=== PATIENT | female | born 1985 | race Caucasian/White ===

== ENCOUNTER 2020-01-21 08:30 | Outpatient (CLI) | payer BC, SELFPAY ==
[2020-01-21 17:19] LABS: Basophils Percent Auto 0.5 % (0.2-1.2); Eosinophils Absolute Auto 0.1 K/mm3 (0-0.3); Hemoglobin 13.8 g/dL (12.0-15.0); Immature Granulocyte Absolute 0.02 K/mm3 (0.00-0.031); Immature Granulocyte Percent A 0.2 % (0-0.5); Lymphocytes Absolute Auto 3.05 K/mm3 (0.9-3.2); Lymphocytes Percent Auto 36.4 % (18.3-44.2); Mean Corpuscular HGB Conc 32.9 g/dl (32-36); Mean Corpuscular Hemoglobin 29.6 pg (26-34); Mean Corpuscular Volume 90.1 fl (80-100); Mean Platelet Volume 9.9 fl (7.4-10.4); Monocytes Absolute Auto 0.7 K/mm3 (0.1-0.6); Monocytes Percent Auto 7.8 % (2.6-8.5); Neutrophils Absolute Auto 4.5 K/mm3 (1.3-6.7); Neutrophils Percent Auto 54.1 % (45.5-73.1); Platelet Count Result 344 k/mm3 (150-375); Red Blood Count 4.66 M/mm3 (4.2-5.4); Red Cell Distribution Width 13.1 % (11.5-14.5); White Blood Count 8.4 K/mm3 (4.5-10.0)
[2020-01-21 17:27] LABS: Add Urine Microscopic? YES; Amorphous Sediment Urine Few; Appearance Urine Cloudy (Clear); Bacteria Urine 4+ /hpf; Bilirubin Urine Negative (Negative); Blood Urine Negative (Negative); Color Urine Yellow (Yellow); Glucose Urine UA Negative (Negative); Ketones Urine Negative (Negative); Leukocyte Esterase Ur Negative LEU/UL (Negative); Mucus Urine Rare /lpf; Nitrate Urine Negative (Negative); Protein Urine 1+ mg/dL (Negative); RBC Urine 0-2 /hpf (0-2); Specific Grav Ur 1.025 (1.001-1.035); Squamous Epithelial Cell Urine Many /hpf (Few); Urobilinogen Urine Negative mg/dL (<2.0)
[2020-01-21 17:33] LABS: Alanine Aminotransferase 13 U/L (4-35); Albumin Level 4.1 g/dL (3.5-5.1); Alkaline Phosphatase 71 U/L (38-126); Aspartate Amino Transferase 20 U/L (14-36); Bilirubin,Total 0.2 mg/dL (0.2-1.3); Blood Urea Nitrogen 11 mg/dL (7-17); CRP 0.8 mg/dL (<1.0); Calcium 9.2 mg/dL (8.4-10.2); Carbon Dioxide 23 mmol/L (22-30); Chloride 102 mmol/L (98-107); Estimated Glomerular Filt Rate > 60; Glucose 88 mg/dL (65-105); Potassium 4.4 mmol/L (3.4-5.0); Sodium 138 mmol/L (137-145)
[2020-01-21 17:56] LABS: Free T4 Free Thyroxine 0.89 ng/mL (0.78-2.19); Vitamin D 25 Hydroxy 25.7 ng/mL
[2020-01-21 18:34] LABS: Folic Acid 7.8 ng/mL (2.76->20)
[2020-01-23 21:43] LABS: C-Peptide 1.15 ng/mL (0.80-3.85)
[2020-01-25 12:28] LABS: Testosterone Free 1.1 pg/mL (0.1-6.4); Testosterone Total 23 ng/dL (2-45)
[2020-01-27 21:35] LABS: Estradiol, Ultrasensitive 184 pg/mL
== END 2020-01-21 08:31 | disposition home or self-care (01) ==
PROVIDERS: PCP Family Medicine; Visit Provider Family Medicine
DX: E03.9 Hypothyroidism, unspecified (principal); M79.89 Other specified soft tissue disorders; B00.89 Other herpesviral infection; N99.89 Other postprocedural complications and disorders of genitourinary system; Z98.51 Tubal ligation status; Z82.62 Family history of osteoporosis; Z79.899 Other long term (current) drug therapy
CPT/HCPCS: 36415; 80053; 81001; 82306; 82607; 82670; 82746; 83001; 84402; 84403; 84439; 84443; 84681; 85025; 86140; 87086; 87088

== ENCOUNTER 2021-05-28 13:26 | Outpatient (CLI) | payer OTHER, SELFPAY ==
--- NOTE | ~2021-05-28 | US_ITS ---
EXAMINATION: US venous doppler [facility] DATE: 05/28/2021 14:13 INDICATION: Lower limb pain and swelling TECHNIQUE: Grayscale ultrasound images without and with compression and Doppler ultrasound images of the bilateral lower extremity veins were obtained. COMPARISON: None. FINDINGS: The visualized portions of right common femoral vein, profunda (deep) femoral vein, femoral vein, pop liteal vein, posterior tibial veins, peroneal veins, gastrocnemius vein and greater saphenous vein ou tflow are patent. The visualized portions of left common femoral vein, profunda femoral vein, femoral vein, popliteal v ein, posterior tibial veins, peroneal veins, gastrocnemius vein and greater saphenous vein outflow ar e patent. IMPRESSION: 1. No deep venous thrombosis in either lower limb. Reviewed, dictated and finalized at location A.
== END 2021-05-28 13:27 | disposition home or self-care (01) ==
LOC: ANHIMG 13:29
PROVIDERS: PCP Family Medicine; Visit Provider Family Medicine
DX: R60.9 Edema, unspecified (principal); M79.604 Pain in right leg; M79.605 Pain in left leg
CPT/HCPCS: 93970

== ENCOUNTER 2022-07-09 08:01 | Outpatient (CLI) | payer BC, SELFPAY ==
--- NOTE | ~2022-07-09 | XR_ITS ---
EXAMINATION: XR abdomen obstructive series DATE: 07/09/2022 08:45 INDICATION: Nausea and vomiting. TECHNIQUE: Upright and supine views of the abdomen on 3 radiographs were obtained. COMPARISON: None. FINDINGS: There are no dilated loops of bowel. There is a moderate volume of stool in the colon. The diaphragm is not included on the upright view. IMPRESSION: 1. Normal bowel gas pattern. Reviewed, dictated and finalized at location A.
--- NOTE | ~2022-07-09 | XR_ITS ---
XR shoulder RT min 2V 07/09/2022 08:44 INDICATION: Right shoulder pain PROCEDURE: 4 views right shoulder COMPARISON: No prior studies for comparison. FINDINGS: Fracture, dislocation or subluxation is not identified. The soft tissues appear within norm al limits. No foreign bodies are identified. IMPRESSION: 1: NO ACUTE BONE OR JOINT ABNORMALITY IDENTIFIED. Reviewed, dictated and finalized at location A.
[2022-07-09 18:45] LABS: Basophils Percent Auto 0.4 % (0.2-1.2); Eosinophils Absolute Auto 0.3 K/mm3 (0-0.3); Eosinophils Percent Auto 4.6 % (0-4.4); Hematocrit 42.3 % (37.0-47.0); Immature Granulocyte Absolute 0.04 K/mm3 (0.00-0.031); Immature Granulocyte Percent A 0.6 % (0-0.5); Lymphocytes Absolute Auto 2.23 K/mm3 (0.9-3.2); Lymphocytes Percent Auto 33.1 % (18.3-44.2); Mean Corpuscular HGB Conc 30.7 g/dl (32-36); Mean Corpuscular Hemoglobin 27.9 pg (26-34); Mean Corpuscular Volume 90.8 fl (80-100); Mean Platelet Volume 10.3 fl (7.4-10.4); Monocytes Absolute Auto 0.6 K/mm3 (0.1-0.6); Monocytes Percent Auto 9.1 % (2.6-8.5); Neutrophils Absolute Auto 3.5 K/mm3 (1.3-6.7); Neutrophils Percent Auto 52.2 % (45.5-73.1); Platelet Count Result 328 k/mm3 (150-375); Red Blood Count 4.66 M/mm3 (4.2-5.4); Red Cell Distribution Width 13.4 % (11.5-14.5); White Blood Count 6.7 K/mm3 (4.5-10.0)
[2022-07-09 19:07] LABS: Appearance Urine Slightly Cloudy (Clear); Bilirubin Urine Negative (Negative); Blood Urine Negative (Negative); Color Urine Yellow (Yellow); Glucose Urine UA Negative (Negative); Ketones Urine Negative (Negative); Leukocyte Esterase Ur Negative LEU/UL (NEGATIVE); Nitrate Urine Negative (Negative); Protein Urine Trace mg/dL (Negative); Specific Grav Ur >= 1.030 (1.001-1.035); Urobilinogen Urine 0.2 mg/dL (<2.0); pH Urine 5.5 (5.0-9.0)
[2022-07-09 19:11] LABS: Lipase 26 U/L (23-300)
[2022-07-09 19:19] LABS: Bacteria Urine 1+ /hpf; Mucus Urine Heavy /lpf; Squamous Epithelial Cell Urine Many /hpf (Few)
[2022-07-09 19:24] LABS: Add Urine Microscopic? YES
[2022-07-09 19:44] LABS: Erythrocyte Sedimentation Rate 14 mm/hr (0-20)
== END 2022-07-09 08:02 | disposition home or self-care (01) ==
PROVIDERS: PCP Family Medicine; Visit Provider Family Medicine
DX: R11.10 Vomiting, unspecified (principal); R23.2 Flushing; R50.9 Fever, unspecified; Z90.49 Acquired absence of other specified parts of digestive tract; M25.511 Pain in right shoulder
CPT/HCPCS: 36415; 73030; 74019; 81001; 83690; 85025; 85652

== ENCOUNTER 2022-11-26 07:24 | Outpatient (CLI) | payer BC, SELFPAY | END 2022-11-26 07:25 | disposition home or self-care (01) | LOC: ANHBWCLAB 07:26 | PROVIDERS: PCP Family Medicine; Visit Provider Family Medicine | DX: R53.83 Other fatigue (principal); E03.9 Hypothyroidism, unspecified | CPT/HCPCS: 36415; 84443 ==

== ENCOUNTER 2023-11-20 07:52 | Outpatient (CLI) | payer OTHER, SELFPAY ==
[2023-11-20 19:58] LABS: Vitamin D 25 Hydroxy 32.1 ng/mL
[2023-11-20 20:01] LABS: Alanine Aminotransferase 15 U/L (6-35); Alkaline Phosphatase 72 U/L (38-126); Anion Gap 6 mmol/L (8-16); Aspartate Amino Transferase 47 U/L (14-36); Bilirubin,Total 0.4 mg/dL (0.2-1.3); Blood Urea Nitrogen 9 mg/dL (7-17); Calcium 8.9 mg/dL (8.4-10.2); Carbon Dioxide 23 mmol/L (22-30); Chloride 109 mmol/L (98-107); Cholesterol 190 mg/dL (0-200); Estimated Glomerular Filt Rate > 60; Glucose 92 mg/dL (65-110); HDL Direct 47 mg/dL; Potassium 4.2 mmol/L (3.4-5.0); Sodium 138 mmol/L (137-145); Triglycerides 103 mg/dL (<150)
[2023-11-20 20:02] LABS: Hematocrit 41.9 % (37.0-47.0); Hemoglobin 13.1 g/dL (12.0-15.0); Mean Corpuscular HGB Conc 31.3 g/dl (32-36); Mean Corpuscular Hemoglobin 28.5 pg (26-34); Mean Corpuscular Volume 91.1 fl (80-100); Mean Platelet Volume 9.9 fl (7.4-10.4); Platelet Count Result 382 k/mm3 (150-375); Red Cell Distribution Width 13.6 % (11.5-14.5); White Blood Count 7.5 K/mm3 (4.5-10.0)
[2023-11-20 20:12] LABS: LDL Cholesterol Direct 104 mg/dL
== END 2023-11-20 07:53 | disposition home or self-care (01) ==
LOC: ANHBWCLAB 07:53
PROVIDERS: PCP Family Medicine; Visit Provider Family Medicine
DX: G47.00 Insomnia, unspecified (principal); E03.9 Hypothyroidism, unspecified; F32.9 Major depressive disorder, single episode, unspecified; F41.9 Anxiety disorder, unspecified; R53.83 Other fatigue; R79.89 Other specified abnormal findings of blood chemistry; Z86.39 Personal history of other endocrine, nutritional and metabolic disease
CPT/HCPCS: 36415; 80053; 80061; 82306; 82607; 84443; 85027

== ENCOUNTER 2024-01-08 08:12 | Outpatient (CLI) | payer OTHER, SELFPAY ==
[2024-01-11 12:52] LABS: Progesterone 9.9 ng/mL (***)
[2024-01-15 17:37] LABS: Estrogen 349 pg/mL
== END 2024-01-08 08:13 | disposition home or self-care (01) ==
LOC: ANHBWCLAB 08:13
PROVIDERS: PCP Nurse Practitioner Adult Health; Visit Provider Nurse Practitioner Adult Health
DX: E03.9 Hypothyroidism, unspecified (principal); R23.2 Flushing
CPT/HCPCS: 36415; 82672; 84144; 84443

== ENCOUNTER 2025-05-05 08:34 | Outpatient (CLI) | payer BC, SELFPAY ==
--- NOTE | ~2025-05-05 | XR_ITS ---
Bilateral Hands Technique: Bilateral PA, oblique, and lateral views, and ball-catcher's view were obtained. Clinical History: Pain Findings: No acute fracture or dislocation is seen. Osseous alignment is anatomic. Joint spaces are p reserved. Soft tissues are unremarkable. Impression: Unremarkable bilateral hand radiographs. Reviewed, dictated and finalized at location . Impression: Unremarkable bilateral hand radiographs.
--- OUTSIDE RECORDS SUMMARY | 2025-05-05 08:45 | XMS_ITS | Clinical Summary ---
Author Organization [facility] Address [address] [place] [address] Care Team Providers Care Caregiver Assisted Living Name Role Phone Unavailable Primary Care Provider Unavailabl e Source Comments [facility],non-owned Affiliates and Associated Physician Practices is amultiple site organization consisting of ambulatory clinics and hospital sitesin [place], [place], [place] and [place]. This disclosure is being madepursuant to the Care Everywhere program and may not contain all information available regarding this patient. Last updated 18.[facility] [employer] Social History Tobacco Use Types Packs/Day Years Used Date Smoking Tobacco: Never Assessed Comments Unknown Sex and Gender Information Value Date Recorded Sex Assigned at Not on file Legal Sex Female 1:55 PM CDT Gender Identity Not on file Sexual Orientation Not on file Plan of Treatment Health Maintenance Due Date Last Done Comments HIV SCREENING 2002 HEPATITIS C SCREENING 08/09/2005 DTAP/TDAP/TD VACCINES (1 - Tdap) 2006 HEPATITIS B VACCINE (1 of 3 - 19+ 3-dose series) 2006 COVID-19 VACCINE ( - 2023-2 5 season) 2024 DEPRESSION SCREENING 12/01/2024 INFLUENZA VACCINE (Season Ended) 2025 ZOSTER VACCINE (1 of 2) 2037 HIB VACCINE Aged Out No longer eligi ble based on patient's age to complete this topic HPV VACCINE Aged Out No longer eligi ble based on patient's age to complete this topic MENINGOCOCCAL (Group B) VACC INE SHARED DECISION-MAKING Aged Out No longer eligibl e based on patient's age to complete this topic MENINGOCOCCAL GROUPS A/C/Y/W VACCINE Aged Out No longer eligible b ased on patient's age to complete this topic PNEUMOCOCCAL VACCINE Aged Out No long er eligible based on patient's age to complete this topic
--- OUTSIDE RECORDS SUMMARY | 2025-05-05 08:45 | XMS_ITS | Encounter Summary ---
Author Organization [facility] Address [address] [place] [address] Care Team Providers Care Supervising Appraiser Name Role Phone Unavailable Primary Care Provider Unavailabl e Encounter Details Date Type Department Care Team (Late st Contact Info) Description 06/23/2020 Lab Requisition [facility] [address] [place] [address] Chelita Mantilla DO [address] [place] [address] Social History Tobacco Use Types Packs/Day Years Used Date Smoking Tobacco: Never Assessed Comments Unknown Sex and Gender Information Value Date Recorded Sex Assigned at Not on file Legal Sex Female 1:55 PM CDT Gender Identity Not on file Sexual Orientation Not on file documented as of this encounter Plan of Treatment Not on file documented as of this encounter Procedures Procedure Name Priority Date/Time Associated Diagnosis Comments DERMATOPATHOLOGY Routine 06/22/2020 12:0 0 AM CDT documented in this encounter Results * DERMATOPATHOLOGY (06/22/2020 12:00 AM CDT) Case Report Dermatopathology Report Case: [id number] Authorizing Provider: Chelita Mantilla DO Collected: 06/22/2020 12:00 AM Ordering Location: [facility] Received: 06/23/2020 07:23 AM Pathologist: Sydney Chou MD Specimens: A) - Skin, mid back B) - Skin, left inner thigh 0 1:52 PM CDT DERMATOPATHOLOGY LABORATORY Final Diagnosis Specimen A. SKIN, mid back: INTRADERMAL MELANOCYTIC NEVUS (D22.5) Specimen B. 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 B: Acr vs cemdy. 0 1:52 PM CDT DERMATOPATHOLOGY LABORATORY Gross Description Specimen A: Received is one formalin filled container labeled with the patient's name and designated mid back. The specimen consists of a shave measuring [id number], bisected. Jar 0. Specimen B: Received is one formalin filled container labeled with the patient's name and designated left inner thigh. The specimen consists of a shave measuring [id number]. Jar 0. 0 1:52 PM CDT DERMATOPATHOLOGY LABORATORY Microscopic Description Specimen A. SKIN, mid back: There are nests of cytologically bland melanocytes within the dermis that mature with depth. Specimen B. SKIN, left inner thigh: There is acanthosis with mild papillomatosis and hyperkeratosis. There are some vacuolated koilocytes present with coarse keratohyalin granules. 0 1:52 PM CDT DERMATOPATHOLOGY LABORATORY Disclaimer An external and internal positive and negative controls are appropriate for the histochemical, immunohistochemical and immunofluorescence stain(s) in this case (if any), except where stated explicitly. The performance characteristics of the stain(s) cited in this report were developed and its performance characteristic determined by the Dermatopathology Laboratory at [facility], directed by Dr. Leander Lema. These tests need not be, and therefore are not, approved by the [place] Food and Drug Administration. The tests are used for clinical purposes. Billing Codes Specimen Charges Stain Charges [id number] 1 1 0 1:52 PM CDT DERMATOPATHOLOGY LABORATORY Embedded Images 0 1:52 PM CDT DERMATOPATHOLOGY LABORATORY Pathology/Cytology TISSUE SPECIMEN FROM SKIN / Unknown 06/22/2020 06/23/2020 7:23 AM CDT Miscellaneous samples (specimen) TISSUE SPECIMEN FROM SKIN / Unknown 06/22/2020 06/23/2020 7:23 AM CDT us Chelita Mantilla DO LAB - PATHOLOGY/CYTOLOGY ORDERABLES Final Result DERMATOPATHOLOGY LABORATORY [facility] - Department of Dermatology [facility] [address] [place] [address], [facility] [phone] documented in this encounter Visit Diagnoses Not on filedocumented in this encounter
--- OUTSIDE RECORDS SUMMARY | 2025-05-05 08:45 | XMS_ITS | Referral Summary ---
Author Organization [address] Address [address] [place] [address] Care Team Providers Care Senior Oracle Pl Sql Developer Name Role Phone Miscellaneous, Not In File Primary Care Provider Unavailable Hira Chamorro MD Unavailable Encounters Date Type Department Care Team Description 02/22/2025 3:45 PM CDT Office Visit [facility] at [address] [place] [address] Mahi Elizabeth, DANA Acute non-recurrent pansinusitis (Primary Dx); Nausea; Non-recurrent acute suppurative otitis media of left ear without spontaneous rupture of tympanic membrane from Last 3 Months Allergies Active Allergy Reactions Criticality Noted Date Comments Codeine Vomiting Low 01/12/2020 Latex Rash Medium Medications docusate sodium (Colace) 100 mg capsuleIndicatio ns:constipation Take 1 capsule (100 mg total) by mouth 2 (two) times a day for 14 days 28 capsule 2 2 Active Additional Information Patient not taking.Reported on 06/20/2022 HYDROcodone-acet aminophen (NORCO) 5-325 mg per tabletIndication s:Pain Take 1 tablet by mouth every 6 (six) hours as needed Active FLUoxetine (PROzac) 20 mg capsule Take 1 capsule (20 mg total) by mouth daily 4 Active levothyroxine (SYNTHROID) 75 mcg tablet Take 1 tablet (75 mcg total) by mouth daily 4 Active albuterol HFA (PROVENTIL HFA,VENTOLIN HFA,PROAIR HFA) 90 mcg/actuation inhaler Inhale 2 puffs every 4 (four) hours as needed for shortness of breath or wheezing (Cough) 18 g 5 Active inhalational spacing device (Aerochamber MV) spacer Use with albuterol inhaler 1 each 5 Active cholecalciferol (VITAMIN D-3) 50,000 unit capsule TAKE 1 CAPSULE BY MOUTH WEEKLY 5 Active dextroamphetamin e-amphetamine XR (ADDERALL XR) 30 mg 24 hr capsule Take 1 capsule (30 mg total) by mouth daily 5 Active Aurovela 24 Fe 1 mg-20 mcg (24)/75 mg (4) per tablet Take 1 tablet by mouth daily 5 Active traZODone (DESYREL) 50 mg tablet Take 1 tablet (50 mg total) by mouth daily as needed 5 Active valACYclovir (VALTREX) 1 gram tablet TK 2 TS PO Q 12 H FOR 1 DAY FOR HERPETIC MANOLO. TK WITHOUT DELAY AT FIRST SIGN OF SYMPTOMS Active PARoxetine (PAXIL) 10 mg tablet Take 1 tablet (10 mg total) by mouth daily Active hydrOXYzine (VISTARIL) 25 mg capsule Active ondansetron (ZOFRAN) 4 mg tablet Take 1 tablet (4 mg total) by mouth every 8 (eight) hours as needed for nausea or vomiting 20 tablet 5 Active predniSONE (DELTASONE) 20 mg tablet Take 2 tablets (40 mg) x2 days then 1 tablet (20mg) x3 days 7 tablet 5 Active benzonatate (TESSALON) 200 mg capsuleIndicatio ns:Non-recurrent acute suppurative otitis media of left ear without spontaneous rupture of tympanic membrane Take 1 capsule (200 mg total) by mouth 3 (three) times a day as needed for cough 42 capsule 5 Active Active Problems Problem Noted Date Diagnosed Date Cholecystitis 06/08/2022 Assessment & Plan (06/20/2022 10:47 AM CDT): Diet as tolerated. Okay to return to work with light duty. No heavy lifting greater than 20 lb for 4 weeks. No submerging incisions for 4 weeks. Please call for any further questions or concerns. Social History Tobacco Use Types Packs/Day Years Used Date Smoking Tobacco: Never Smokeless Tobacco: Never Alcohol Use Standard Drinks/Week Comments Yes 0 (1 standard drink = 0.6 oz pur e alcohol) Occasional AUDIT-C Answer Date Recorded Q1: How often do you have a drink containing alc ohol? 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 Gender Identity Not on file Sexual Orientation Not on file Last Filed Vital Signs Vital Sign Reading Time Taken Comments Blood Pressure 102/68 02/22/2025 3:26 PM CDT Pulse 88 02/22/2025 3:26 PM CDT Temperature 36.6 C (97.8 F) 02/22/2025 3:26 PM CDT Respiratory Rate 18 02/22/2025 3:26 PM CDT Oxygen Saturation 98% 02/22/2025 3:26 PM CDT Inhaled Oxygen Concentration - - Weight 78 kg (172 lb) 02/22/2025 3:26 PM CDT Height 165.1 cm (5' 5) 02/22/2025 3:26 PM CDT Body Mass Index 28.62 02/22/2025 3:26 PM CDT Plan of Treatment Not on file Procedures Procedure Name Priority Date/Time Associated Diagnosis Comments POCT INFLUENZA A/B Routine 02/22/2025 3: 48 PM CDT Acute non-recurrent pansinusitis COVID-19 POC Routine 02/22/2025 3:48 PM CDT Acute non-recurrent pansinusitis from Last 3 Months Results * COVID-19 POC (02/22/2025 3:48 PM CDT) COVID-19 Ag POC (BD Veritor) Presumptive Negative Presumptive Negative, Invalid [facility] Nasal 02/22/2025 3:48 PM CDT Mahi Elizabeth DIRECTOR OF PROFESSIONAL SERVICES POINT OF CARE TEST ORDERA BLES Final Result [facility] [address] [place] [address], [facility] * POCT influenza A/B (02/22/2025 3:48 PM CDT) Rapid Influenza A Ag Negative Negative, Invalid Rapid Influenza B Ag Negative Negative, Invalid Nasal 02/22/2025 3:48 PM CDT Mahi Elizabeth DIRECTOR OF PROFESSIONAL SERVICES POINT OF CARE TEST ORDERA BLES Final Result from Last 3 Months Insurance [employer] OOS Advance Directives For more information, please contact: [phone] * Full Code (Latest Code Status on File) Date Activated Date Inactivated Comments 06/08/2022 11:46 PM 06/10/2022 9:22 PM Care Teams Senior Oracle Pl Sql Developer Relationship Specialty Start Date End Date Miscellaneous, Not In File PCP - General 06/08/22 Hira Chamorro MD Consulting Physician General Surgery 06/10/22
--- OUTSIDE RECORDS SUMMARY | 2025-05-05 08:45 | XMS_ITS | Clinical Summary ---
Author Organization [address] Address [address] [place] [address] Care Team Providers Care Abattoir Supervisor Name Role Phone Miscellaneous, Not In File Primary Care Provider Unavailable Hira Chamorro MD Unavailable Allergies Active Allergy Reactions Criticality Noted Date [...] call for any further questions or concerns. Encounters Date Type Department Care Team Description 02/22/2025 3:45 PM CDT Office Visit [facility] [place] [address] [place] [address] aMhi Elizabeth NP Acute non-recurrent pansinusitis (Primary Dx); Nausea; Non-recurrent acute suppurative otitis media of left ear without spontaneous rupture of tympanic membrane from Last 3 Months Surgical History Surgery Date Site/Laterality Comments SECTION 12/01/2005 - 11/30/2006 SECTION 12/01/2008 - 11/30/2009 SECTION 12/01/2012 - 11/30/2013 CHOLECYSTECTOMY 06/10/2022 Medical History Medical History Date Comments Depression Family History Medical History Relation Name Comments Diabetes Maternal Grandmother Heart disease Maternal Grandmother Cancer Paternal Grandmother Relation Name Status Comments Maternal Grandmother Paternal Grandmother Social History Tobacco Use Types Packs/Day Years [...] on file 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 Gender Identity Not on file Sexual Orientation Not on file Obstetrics History Last Filed Vital Signs Vital Sign Reading [...] 02/22/2025 3:26 PM CDT Plan of Treatment Health Maintenance Due Date Last Done Comments Cervical Cancer Screening 1987 Depression Screening 1987 Hepatitis C Screening 1987 Varicella Vaccines (1 of 2 - 13+ 2-dose series) 2000 Hepatitis B Screening 2005 Regular Well Visit/Exam 18-64 2005 DTaP/Tdap/Td Vaccine (2 - Td or Tdap) 12/01/2021 12/01/2011 Influenza Vaccine (Season Ended) 2025 08/31/20 16 HPV Vaccines Aged Out No longer eligi ble based on patient's age to complete this topic Pneumococcal vaccine <65 Aged Out No longer eligible based on patient's age to complete this topic Procedures Procedure Name Priority Date/Time Associated Diagnosis Comments POCT INFLUENZA A/B Routine 02/22/2025 3: 48 PM CDT Acute non-recurrent pansinusitis COVID-19 POC Routine 02/22/2025 3:48 PM CDT Acute non-recurrent pansinusitis from Last 3 Months Results * COVID-19 POC (02/22/2025 3:48 PM CDT) COVID-19 Ag POC (BD Veritor) Presumptive Negative Presumptive Negative, Invalid [facility] Nasal 02/22/2025 3:48 PM CDT Mahi Elizabeth CLOCK MAKER POINT OF CARE TEST ORDERA BLES Final Result [facility] [address] [place] [address], [facility] * POCT influenza A/B (02/22/2025 3:48 PM CDT) Rapid Influenza A Ag Negative Negative, Invalid Rapid Influenza B Ag Negative Negative, Invalid Nasal 02/22/2025 3:48 PM CDT Mahi Elizabeth CLOCK MAKER POINT OF CARE TEST ORDERA BLES Final Result from Last 3 Months Insurance [employer] OOS Advance Directives For more information, please contact: [phone] * Full Code (Latest Code Status on File) Date Activated Date Inactivated Comments 06/08/2022 11:46 PM 06/10/2022 9:22 PM Care Teams Abattoir Supervisor Relationship Specialty Start Date End Date Miscellaneous, Not In File PCP - General 06/08/22 Hira Chamorro MD Consulting Physician General Surgery 06/10/22
--- OUTSIDE RECORDS SUMMARY | 2025-05-05 08:45 | XMS_ITS | Data Portability ---
Author Organization [facility] Talisha LEWIS Address [address] [place] [address] Care Team Providers Care Turner In Name Role Phone YAJAIRA LAO Primary Care Provider TERESITA CERDA City Supervisor Assessment Encounter Date Assessment Date Assessment LastModified by Organization Details LastModified Time 02/24/2018 02/24/2018 deep penetration dyspareunia over last 5 months. No CMT or bladder tenderness today - seems likely to be an ovary issue. 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 Lab unlisted lab - igp, rfx aptima HPV ascu 2018 019 [facility], [address], [address], [place], [place], [address], 9 16:11:22 pap, IG + reflex HR HPV 2017 018 [facility], [address], [place], [address], 8 11:15:49 Referral None recorded. Procedures None recorded. Surgeries None recorded. Imaging None recorded. Medication Orders 1 mg-20 mcg (24)/75 mg (4) tablet 2023 024 [id number], [address], [place], [place], [id number], 4 10:51:22 erythromyci n with ethanol 2 % topical solution 2015 016 [facility], [address], [place], [address], 4 10:24:14 fluoxetine 20 mg capsule 2015 016 [facility], [address] [facility] [address], [place], [place], [id number], 6 12:46:02 Patient TargetsNo targets recorded. Patient Instructions Encounter Date Encounter Id Patient Instructions Last Modified By Organization Details Last Modified Time 02/01/2016 [id number] Take meds as prescribed Healthy diet/ exercise f/u in 3 month nsuthan Not available 02/01/2016 10:11:39 11/07/2016 [id number] Return to clinic if fever or problem worsen nsuthan Not available 11/07/2016 12:47:02 pt stopped meds for anxiety and depression , doing ok without meds per pt. 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 Results Created Date Observation Date Name Description Value Unit Range Abnormal Flag Note LastModifiedBy Organization Detail LastModifiedTime 02/25/20 18 02/26/2018 pap, IG + refle x HR HPV diagnosis: Commen t NEGAT WENDY FOR INTRA EPITH ELIAL ROSA Goodman AND VELMA LENNON . Not Available [facility] ([facility]) [address], [place], [address], 02/26/2018 11:15:49 02/25/20 18 02/26/2018 pap, IG + refle x HR HPV specimen adequacy: Agustin goyal Satis facto ry for evalu ation . Endoc ervic al and/o r squam ous metap lasti c cells (endo cervi monalisa compo nent) are prese nt. Not Available [facility] ([facility]) [address] [place], [address], 02/26/2018 11:15:49 02/25/20 18 02/26/2018 pap, IG + refle x HR HPV clinician provided ICD10: Agustin goyal N94.1 0 Not Available [facility] ([facility]) [address] [place], [address], 02/26/2018 11:15:49 02/25/20 18 02/26/2018 pap, IG + refle x HR HPV performed by: Agustin allen, Cytot echno janki t (ASCP ) Not Available [facility] ([facility]) [address] [place], [address], 02/26/2018 11:15:49 02/25/20 18 02/26/2018 pap, IG + refle x HR HPV . . Not Available [facility] ([facility]) [address] [place], [address], 02/26/2018 11:15:49 02/25/20 18 02/26/2018 pap, IG + refle x HR HPV note: Agustin goyal The Pap smear is a scree iza test desremy becerra to aid in the detec tion of slim ligna nt and malig nanjay jay condi tions of the uteri ne cervi x. It is not a diagn ostic proce dure and shoul d not be used as the sole means of detec ting cervi monalisa cance r. Both false -posi tive and false -nega tive repor ts do occur . Not Available [facility] ([facility]) [address] [place], [address], 02/26/2018 11:15:49 02/25/20 18 02/26/2018 pap, IG + refle x HR HPV test methodology: Commen t This liqui d based ThinP rep(R ) pap test was scree mariam with the use of an image guide keaton syste m. Not Available [facility] ([facility]) [address], [place], [address], 02/26/2018 11:15:49 02/25/20 18 02/26/2018 pap, IG + refle x HR HPV . Commen t The HPV DNA refle x crite sukhdeep were not met with this speci men resul t there fore, no HPV testi ng was perfo rmed. Not Available [facility] ([facility]) [address] [place], [address], 02/26/2018 11:15:49 02/25/20 18 02/26/2018 pap, IG + refle x HR HPV chlamydia, nuc. acid amp Negati ve negati ve Not Available [facility] ([facility]) [address] [place], [address], 02/26/2018 11:15:49 02/25/20 18 02/26/2018 pap, IG + refle x HR HPV gonococcus, nuc. acid amp Negati ve negati ve Not Available [facility] ([facility]) [address] [place], [address], 02/26/2018 11:15:49 07/19/20 19 07/20/2019 pap, IG + refle x HR HPV diagnosis: Commen t NEGAT WENDY FOR INTRA EPITH ELIAL LESIO N OR MALREMY CITLALLI . Not Available [facility] ([facility]) [address] [place], [address], 07/20/2019 16:11:22 08/19/20 19 07/20/2019 pap, IG + refle x HR HPV specimen adequacy: Agustin goyal Satis facto ry for evalu ation . Endoc ervic al and/o r squam ous metap lasti c cells (endo cervi monalisa compo nent) are prese nt. Not Available [facility] ([facility]) [address] [place], [address], 07/20/2019 16:11:22 07/19/20 19 07/20/2019 pap, IG + refle x HR HPV clinician provided ICD10: Agustin goyal Z01.4 19 Not Available [facility] ([facility]) [address] [place], [address], 07/20/2019 16:11:22 07/19/20 19 07/20/2019 pap, IG + refle x HR HPV performed by: Agustin Grace rs, Cytot koki goyal (ASCP ) Not Available [facility] ([facility]) [address] [place], [address], 07/20/2019 16:11:22 07/19/20 19 07/20/2019 pap, IG + refle x HR HPV . . Not Available [facility] ([facility]) [address] [place], [address], 07/20/2019 16:11:22 07/19/20 19 07/20/2019 pap, IG + refle x HR HPV note: Agustin goyal The Pap smear is a scree iza test desig mariam to aid in the detec tion of slim ligna nt and malig nant condi tions of the uteri ne cervi x. It is not a diagn ostic proce dure and shoul d not be used as the sole means of detec ting cervi monalisa cance r. Both false -posi tive and false -nega tive repor ts do occur . Not Available [facility] ([facility]) [address] [place], [address], 07/20/2019 16:11:22 07/19/20 19 07/20/2019 pap, IG + refle x HR HPV test methodology: Commen t This liqui d based ThinP rep(R ) pap test was screyaneth mariam with the use of an image guide keaton canseco Not Available [facility] ([facility]) [address] [place], [address], 07/20/2019 16:11:22 07/19/20 19 07/20/2019 pap, IG + refle x HR HPV . Commen t The HPV DNA refle x crite sukhdeep were not met with this speci men resul t there fore, no HPV testi ng was perfo rmed. Not Available [facility] ([facility]) [address] [place], [address], 07/20/2019 16:11:22 08/24/20 24 08/31/2024 IGP, RFX APTIM A HPV ASCU diagnosis: COMMEN T abnormal EPITH ELIAL CELL ABNOR MALIT Y. ATYPI MONALISA SQUAM OUS CELLS OF UNDET ERMIN ED SIGNI FICAN CE (ASC- US). Not Available [facility] ([facility]) [address] [place], [address], 09/01/2024 07:15:51 08/24/20 24 08/31/2024 IGP, RFX APTIM A HPV ASCU specimen adequacy: COMMEN T Satis facto ry for evalu ation . Endoc ervic al and/o r squam ous metap lasti c cells (endo cervi monalisa compo nent) are prese nt. Not Available [facility] ([facility]) [address] [place], [address], 09/01/2024 07:15:51 08/24/20 24 08/31/2024 IGP, RFX APTIM A HPV ASCU clinician provided ICD10: AGUSTIN T Z01.4 19 Not Available [facility] ([facility]) [address], [place], [address], 09/01/2024 07:15:51 08/24/2008/31/2024 IGP, RFX APTIM A HPV ASCU performed by: AGUSTIN cardona, Cytot echno logis t (ASCP ) Not Available [facility] ([facility]) [address] [place], [address], 09/01/2024 07:15:51 08/24/2008/31/2024 IGP, RFX APTIM A HPV ASCU electronical ly signed by: AGUSTIN Elizabeth MD, Patho logis t Not Available [facility] ([facility]) [address] [place], [address], 09/01/2024 07:15:51 08/24/2008/31/2024 IGP, RFX APTIM A HPV ASCU . . Not Available [facility] ([facility]) [address] [facility], [place], [address], 09/01/2024 07:15:51 08/24/2008/31/2024 IGP, RFX APTIM A HPV ASCU pathologist provided ICD10: AGUSTIN Goyal R87.6 10 Not Available [facility] ([facility]) [address] [place], [address], 09/01/2024 07:15:51 08/24/2008/31/2024 IGP, RFX APTIM A HPV ASCU note: AGUSTIN Goyal The Pap smear is a scree iza test desig mariam to aid in the detec tion of slim ligna nt and malig nant condi tions of the uteri ne cervi x. It is not a diagn ostic proce dure and shoul d not be used as the sole means of detec ting cervi monalisa cance r. Both false -posi tive and false -nega tive repor ts do occur . Not Available [facility] ([facility]) [address] [facility] [facility], [place], [address], 09/01/2024 07:15:51 08/24/2008/31/2024 IGP, RFX APTIM A HPV ASCU test methodology: - The Thin Prep( R) Image r was unabl e to read this speci men. There fore a manua l revie w was perfo rmed. Not Available [facility] ([facility]) [address], [place], [address], 09/01/2024 07:15:51 08/24/20 24 08/31/2024 IGP, RFX APTIM A HPV ASCU . COMMEN T See below for HPV testi ng resul ts. Not Available [facility] ([facility]) [address] [facility], [place], [address], 09/01/2024 07:15:51 08/24/2008/31/2024 HPV APTIM A HPV aptima Negati ve negati ve This nucle ic acid ampli ficat ion test detec ts fourt een high- risk HPV types (16,1 8,31, 33,35 ,39,4 5,51, 52,56 ,58,5 9,66, 68) witho ut diffe renti ation . Not Available [facility] ([facility]) [address], [place], [address], 09/01/2024 07:15:52 10/04/20 16 09/30/2016 XR, chest No observ ation record ed. [place] [address] [place], [address], 10/07/2016 11:45:21 10/04/20 16 09/30/2016 XR, ribs, unila teral No observ ation record ed. [email or web address] [place] [address] [place], [address], 10/07/2016 11:44:51 Result Notes None recorded. Problems Name Problem SNOMED Code Status Onset Date Resolution Date Notes Provider Name and Address Organization Details Recorded Time Mixed anxiety and depressive disorder 211402574 Active Yajaira Lao MD Attn: Marquez ziegler,[address] , [place], [address], [facility] 6 10:11:39 Problem Notes None recorded. Procedures Surgical History Date Name Laterality Status Provider Name and Address Organization Details Recorded Time 4 Date of Last Pap Smear completed HERSON Gambino [facility] 09/01/2024 09:43:56 3 Tubal Ligation completed Priscila Kuo RN [facility] 11/04/2014 10:00:32 Caesarean Section completed James Rogers [facility] 12/30/2014 11:05:48 Imaging Results None recorded. Procedure Notes None recorded. Medical Equipment None Reported. Allergies Allergen ID Allergen Name Allergen Category Reaction Reaction Severity Criticality Documentation Date Start Date Code Code System Note Provider Name and Address Organization Details Recorded Time 5811 latex environme nt,medica tion Not available Not available Not available 11/04/2014 28796 91 RxNorm Priscila Kuo RN [facility], [facility] 4 10:00:32 Medications Name Sig Start Date Stop Date Status Note LastModified by Organization Details LastModified Time tab 12/20 completed Not Available Not Available Not Available nitrofurant oin monohydrate 100 mg caps 08/24 completed Not Available Not Available Not Available metronidazo le 500 mg tabs 08/24 completed Not Available Not Available Not Available fluconazole 150 mg tabs 08/24 completed Not Available Not Available Not Available methocarbam ol 500 mg tablet 08/24 completed Not Available Not Available Not Available venlafaxine ER 37.5 mg capsule,ext ended release 24 hr TAKE 1 CAPSULE BY MOUTH DAILY 08/24 completed Not Available Not Available Not Available paroxetine 10 mg tablet TAKE 1 TABLET BY MOUTH DAILY active Not Available Not Available No t Available azithromyci n 250 mg tablet 08/24 completed Not Available Not Available Not Available fluconazole 150 mg tablet TAKE 1 TABLET BY MOUTH 2 TIMES A WEEK FOR 1 DAY 08/24 completed Not Available Not Available Not Available benzonatate 200 mg capsule 08/24 completed Not Available Not Available Not Available valacyclovi r 1 gram tablet TK 2 TS PO Q 12 H FOR 1 DAY FOR HERPETIC MANOLO. TK WITHOUT DELAY AT FIRST SIGN OF SYMPTOMS active Not Available Not Available No t Available prednisone 20 mg tablet active Not Available Not Available Not Available fluoxetine 10 mg tablet TAKE 1 TABLET BY MOUTH EVERY EVENING 08/24 completed Not Available Not Available Not Available metronidazo le 500 mg tablet TK 1 T PO BID FOR 7 DAYS 08/24 completed Not Available Not Available Not Available tramadol 50 mg tablet 08/24 completed Not Available Not Available Not Available levothyroxi ne 25 mcg tablet TAKE 1 TABLET BY MOUTH DAILY 08/24 completed Not Available Not Available Not Available levothyroxi ne 75 mcg tablet TAKE 1 TABLET BY MOUTH DAILY active Not Available Not Available No t Available Macrobid 100 mg capsule Take 1 capsule every 12 hours by oral route for 7 days. 08/24 completed Not Available Not Available Not Available Microgestin FE 12/20 (28) 1 mg-20 mcg (21)/75 mg (7) tablet Take 1 tablet every day by oral route for 28 days. 08/24 completed Not Available Not Available Not Available levothyroxi ne 50 mcg tablet TAKE 1 TABLET BY MOUTH DAILY 08/24 completed Not Available Not Available Not Available cephalexin 500 mg capsule active Not Available Not Available Not Available oseltamivir 75 mg capsule 08/24 completed Not Available Not Available Not Available codeine 10 mg-guaifene sin 100 mg/5 mL oral liquid 08/24 completed Not Available Not Available Not Available methylpredn isolone 4 mg tablets in a dose pack 11/07 completed Not Available Not Available Not Available ondansetron 4 mg disintegrat ing tablet active Not Available Not Available N ot Available fluoxetine 20 mg capsule TAKE 1 CAPSULE BY MOUTH DAILY active Not Available Not Available No t Available naproxen 500 mg tablet active Not Available Not Available Not Available amoxicillin 875 mg-potassiu m clavulanate 125 mg tablet active Not Available Not Available Not Available hydroxyzine pamoate 25 mg capsule active Not Available Not Available N ot Available Ortho Tri-Cyclen LO (28) 0.18 mg/0.215 mg/0.25 mg-25 mcg tablet Take 1 tablet every day by oral route for 28 days. 2014 active Not Available Not Available Not Avai roselyn Tri-Sprinte c (28) 0.18 mg(7)/0.215 mg(7)/0.25 mg(7)-0.035 mg tablet one po qday active Not Available Not Available No t Available erythromyci n with ethanol 2 % topical solution APPLY A THIN LAYER TO THE AFFECTED AREA(S) BY TOPICAL ROUTE 2 TIMES PER DAY IN THE MORNING AND EVENING 08/24 completed Not Available Not Available Not Available Aurovela 24 Fe 1 mg-20 mcg (24)/75 mg (4) tablet TAKE 1 TABLET BY MOUTH EVERY DAY active Not Available Not Available No t Available Vitals Date Recorded Respiratory rate Body height Body weight Body mass index (BMI) Heart rate Oxygen saturation Oxygen saturation in Arterial blood by Pulse oximetry Body temperature Systolic blood pressure Diastolic blood pressure Provider Name and Address Organization Details Last Updated DateTime 6 12 /min 166.37 cm 56049.7 74398 g 25.8 kg/m2 99 /min 100 % 100 % 98.5 [degF] 116 mm[Hg] 80 mm[Hg] Shiela Suarez MA [facility] 6 09:40:25 Date Recorded Body height Body mass index (BMI) Body weight Systolic blood pressure Diastolic blood pressure Provider Name and Address Organization Details Last Updated DateTime 02/24/2018 166.37 cm 25 kg/m2 36449.91 g 118 mm[Hg] 82 mm[Hg] Kylie goodman MA [place] - [facility] 8 11:09:58 Date Recorded Body height Body mass index (BMI) Body weight Systolic blood pressure Diastolic blood pressure Provider Name and Address Organization Details Last Updated DateTime 07/19/2019 166.37 cm 25.4 kg/m2 86749.82 g 112 mm[Hg] 76 mm[Hg] Kylie goodman MA [facility] 9 16:24:37 Date Recorded Body height Body mass index (BMI) Body weight Systolic blood pressure Diastolic blood pressure Provider Name and Address Organization Details Last Updated DateTime 08/24/2024 166.37 cm 27.9 kg/m2 98892.7 g 114 mm[Hg] 76 mm[Hg] Carolynn Vidal [facility] 4 10:35:10 Date Recorded Body height Body weight Body mass index (BMI) Heart rate Respiratory rate Body temperature Oxygen saturation Oxygen saturation in Arterial blood by Pulse oximetry Systolic blood pressure Diastolic blood pressure Provider Name and Address Organization Details Last Updated DateTime 6 166.37 cm 88895.6 3 g 25.1 kg/m2 101 /min 12 /min 98.3 [degF] 99 % 99 % 108 mm[Hg] 76 mm[Hg] Diana Moore [facility] 6 12:09:52 Social History Question Answer Notes LastModified by [facility] Details LastModified Time Tobacco Smoking Status Never Smoker Carmel Solis RN [facility], [facility] 12/30/2014 11:24:40 What Is Your Level Of Caffeine Consumption? Moderate Information not available 11/07/2016 How Much Tobacco Do You Chew? None Information not available 11/07/2016 What Type Of Diet Are You Following? REGULAR Information not available 11/07/2016 Which Illicit Or Recreational Drugs Have You Used? Drugs Information not available 11/07/2016 Marital Status Informatio n not available 11/07/2016 What Was The Date Of Your Most Recent Tobacco Screening? 08/24/2024 Information not available 08/24/2024 How Many Children Do You Have? 3 [email or web address] Information not available 02/03/2015 General Stress Level High Information not available 11/07/2016 Has Tobacco Cessation Counseling Been Provided? No Information not available 08/24/2024 Sex: Female Functional Status Question Answer Note LastModified by Organizat ion Details LastModified Time Do you or have you ever used any other forms of tobacco or nicotine? No Information not available 08/24/2024 What is your level of alcohol consumption? Occasional [email or web address] Information not available 12/30/2014 What is your exercise level? Occasional Information not available 11/07/2016 Mental Status None recorded. Family History Relationship Description Onset Age of this Age Resolved Age Notes LastModified by Organization Details LastModified Time Maternal Grandmother Diabetes mellitus [email or web address] Not available 2015 09:40:51 Medical History Condition Response Coronary Artery Disease N Other N Atrial Fibrillation N High Blood Pressure N Kidney or Bladder Problems Y Thyroid Problems Y GI Problems N Depression Y COPD N Blood Clots N Skin Problems N Anemia N Heart Attack ([place]) N Anxiety Disorder N Diabetes N Muscle, Joint, or Bone Problems N Seizures/Epilepsy N Acid Reflux (GERD) N Cancer N Stroke N Asthma N Allergies N High Cholesterol N Hepatitis N Liver Disease N Headaches N Heart Failure N Osteoporosis N Gynecological History Statement/Question Response STIs/STDs N Abnormal Pap Yes Date of Last Pap Smear 08/24/2024 Sexual Problems? N Current Control Method Tubal Ligat ion LMP Definite Obstetrics History GPAL:G 3 P 3 0 0 3 Type Value Full Term 3 Living 3 Total 3 Immunizations Vaccine Type Date Status Note Provider Nam e and Address Organization Details Recorded Time Tdap 12/01/2011 completed Diana parmar [facility] 11/07/2016 12:12:07 influenza, unspecified formulation 08/31/2016 claritza parmar [facility] 11/07/2016 12:12:24 Past Encounters Encounter ID Performer Location Encounter Start Date Encounter Closed Date Diagnosis/Indication Diagnosis SNOMED-CT Code Diagnosis ICD10 Code Diagnosis Note [id number] MD Wilber Preston (Adult Med) [address] [place] [address] 12/30/2014 10:54:00 12/30/2014 12:15:15 Mixed anxiety and depressive disorder 055022140 continue same Adult heal th examination [id number] MD Maryanne Meier [facility] ([place] [address]) [address] [place] [address] [place] [address] [address] 02/03/2015 11:54:52 02/03/2015 14:54:42 Gynecologic examination [id number] MD Wilber Preston (Adult Med) [address] [place] [address] 06/09/2015 09:50:51 06/09/2015 10:42:20 History and physical examination, [facility] [id number] pt is uptodate with Tdap and 2 step TB needs MMR and chicken pox titres Mixed anxi ety and depressive disorder 734244896 continue same [id number] MD Wilber Preston (Adult Med) [address] [place] [address] 02/01/2016 09:17:48 02/02/2016 11:00:44 Mixed anxiety and depressive disorder 715600226 F34.1 Restart med [id number] MD Wilber Preston (Adult Med) [address] [place] [address] 11/07/2016 12:01:55 11/07/2016 13:09:46 Foot pain 60074604 M79.672 of L/big toe -mild inflamatio nconservat wendy mx- NSAID for pain /ice Acne 95522509 L70.9 [id number] MD Maryanne Meier [facility] ([address]) [address] [place] [address] 02/24/2018 10:39:39 02/27/2018 18:34:56 Body mass index 25-29 - overweight 592259956 Z68.25 Dyspareunia 28329144 N94 .10 Vaginal discharge 928868 006 N89.8 [id number] MD Maryanne Meier [address] [facility] [address] [place] [address] 07/19/2019 16:07:20 07/20/2019 09:36:22 Gynecologic examination 69238107 Z01.300 [id number] MD Maryanne Meier 14 OB [address] [facility] [address] [place] [address] 08/24/2024 10:14:54 08/26/2024 16:19:31 Depression screening 197678400 Z13.31 Gynecologi c examination 17042087 Z01.419 Menorrhagia 230878345 N9 2.0 Health Concerns Section Related Observation LastModified by Organization Detai ls LastModified Time None Recorded Concern Status LastModified by Organization Details LastModified Time None Recorded Advance Directives Directive None Recorded Payers Encounter Date Sequence Insurance Name Policy Number Policy Trevino Covered Member ID Trevino Member ID Guarantor Name 02/01/2016 1 [facility] (MEDICAID HMO) [id number] Melody Gould [id number] Melody Hernandez 11/07/2016 1 [facility] (MEDICAID HMO) [id number] Melody Gould [id number] Melody Juarez Hernandez 02/24/2018 2 [place] [id number] Bhargav Hernandez [id number] Melody Juarez Hernandez 07/19/2019 2 [place] [id number] Bhargav Hernandez [id number] Melody Juarez Hernandez 08/24/2024 1 [employer] [facility] [facility] ON OR AFTER 10/31/2020 (MEDICAID REPLACEMENT - HMO) [id number] Bhargav Rodasyer [id number] Melody Hernandez Notes Date Note Type Note Provider Name and Address Organization Details Recorded Time 02/01/2016 text/html Anxiety/Depressi onRepo rted bypatient.Quality:mood worse(without meds, wants to go back on it) Severity:denies suicidal ideations Context:major life stressors(lives with 5 children , working as well) Modifying Factors:medications as directed (ran out meds few months ago, needs refill on meds) Associated Symptoms:denies homicidal ideations; no crying spells;anxiety;depress ionNotes:pt missed f/u , needs refill on meds. Yajaira Lao MD Attn: [address]ing[address] [place], [address], [facility] 02/01/2016 10:16:24 11/07/2016 text/html Generic HPI TemplateReported bypatient.Location:L/b ig toe Quality:aching with mild swelling Duration:2 month Context:pt had pedicure 2 month ago , started noticing pain with swelling on L/big toe . Associated Symptoms:denied feverNotes:pt also has acne in back of neck and chest area . Yajaira Lao MD Attn: [address]ing[address] [place], [address], [facility] 11/07/2016 12:47:10 07/19/2019 text/html Annual GYNReport ed bypatient.Menstrual cycle:Irregular cycle intervals Urinary symptoms:No hematuria; No incontinence Vulva:No genital lesion Vagina:Normal vaginal discharge Breast:No breast pain; No breast lump; No nipple discharge Current Contraception:Tubal ligation Sexual complaints:No sexual complaints; No pain during intercourse; Normal libido Menopausal Symptoms:No menopausal symptoms; Normal vaginal lubrication Psychological symptoms:No depression; No anxiety; No PMDD Teresita Cerda MD Attn: [address]ing[address] [place], [address], [facility] 07/19/2019 16:38:32 08/24/2024 text/html Annual GYNReport ed bypatient.Menstrual cycle:Menorrhagia Urinary symptoms:No hematuria; No incontinence Vulva:No genital lesion Vagina:Normal vaginal discharge Breast:No breast pain; No breast lump; No nipple discharge Current Contraception:Tubal ligation Sexual complaints:No sexual complaints; No pain during intercourse; Normal libido Menopausal Symptoms:No menopausal symptoms; Normal vaginal lubrication Psychological symptoms:No depression; No anxiety; No PMDD periods heavier recentlynot seen in 5 yearskids all doing well oldest son (18) just moved out ; Hes a good human Teresita Cerda MD Attn: Accounting[address] [place], [address], [facility] 08/24/2024 10:51:32 OBGyn Episode Ob Episode Information Episode Created Date Number of Fetuses Patient Bloodtype Patient rh Status Prepregnancy Weight lbs Domestic Partner Domestic Partner Phone Father Name Digital Engineer Status 11/04/20 14 1 CLOSED Fetus Data First Name Last Name Admitted to NICU Weight (g) Sex Living Outcome Pediatric Complications Fetus ID Race Codes Race Delivery Type [id number] [id number] M [id number] Edinson Calculation Initial Edinson Date Initial Exam Date Initial Exam Provider Initial Ultrasound Date Last Menstrual Period Date Ultra Sound Weeks Gestation 0 Eighteen To Twenty Week Edinson Update Ultra Sound Date Fundal Height At Umbil Quickening Date Ultra Sound Latest Weeks Gestation Final Edinson Confirmed By Final Edinson Confirmed Date Final Edinson Date Ultra Sound Latest Days Gestation 0 0 Menstrual History Last Menstrual Date Menses Monthly On Bcp Conception Prior Menses Frequency Hcg Plus Date Menarche Onset Age Delivery Information Delivery Date Delivery Type Labor Anesthesia Weeks Gestation Incision Type Labor Labor Length Hrs Delivered By Post Complications Tubal Sterilization Discharge Date Comments 9 Dr. Sheth Discharge Information Feeding Method Contraceptive Method Maternal HG B and HCT Levels Ob Episode Information Episode Created Date Number of Fetuses Patient Bloodtype Patient rh Status Prepregnancy Weight lbs Domestic Partner Domestic Partner Phone Father Name Digital Engineer Status 11/04/20 14 1 CLOSED Fetus Data First Name Last Name Admitted to NICU Weight (g) Sex Living Outcome Pediatric Complications Fetus ID Race Codes Race Delivery Type 2948.34 [id number] M 2405 Edinson Calculation Initial Edinson Date Initial Exam Date Initial Exam Provider Initial Ultrasound Date Last Menstrual Period Date Ultra Sound Weeks Gestation 0 Eighteen To Twenty Week Edinson Update Ultra Sound Date Fundal Height At Umbil Quickening Date Ultra Sound Latest Weeks Gestation Final Edinson Confirmed By Final Edinson Confirmed Date Final Edinson Date Ultra Sound Latest Days Gestation 0 0 Menstrual History Last Menstrual Date Menses Monthly On Bcp Conception Prior Menses Frequency Hcg Plus Date Menarche Onset Age Delivery Information Delivery Date Delivery Type Labor Anesthesia Weeks Gestation Incision Type Labor Labor Length Hrs Delivered By Post Complications Tubal Sterilization Discharge Date Comments 6 Dr. Cerda Discharge Information Feeding Method Contraceptive Method Maternal HG B and HCT Levels Ob Episode Information Episode Created Date Number of Fetuses Patient Bloodtype Patient rh Status Prepregnancy Weight lbs Domestic Partner Domestic Partner Phone Father Name Digital Engineer Status 11/04/20 14 1 CLOSED Fetus Data First Name Last Name Admitted to NICU Weight (g) Sex Living Outcome Pediatric Complications Fetus ID Race Codes Race Delivery Type 2948.34 [id number] F [id number] Edinson Calculation Initial Edinson Date Initial Exam Date Initial Exam Provider Initial Ultrasound Date Last Menstrual Period Date Ultra Sound Weeks Gestation 0 Eighteen To Twenty Week Edinson Update Ultra Sound Date Fundal Height At Umbil Quickening Date Ultra Sound Latest Weeks Gestation Final Edinson Confirmed By Final Edinson Confirmed Date Final Edinson Date Ultra Sound Latest Days Gestation 0 0 Menstrual History Last Menstrual Date Menses Monthly On Bcp Conception Prior Menses Frequency Hcg Plus Date Menarche Onset Age Delivery Information Delivery Date Delivery Type Labor Anesthesia Weeks Gestation Incision Type Labor Labor Length Hrs Delivered By Post Complications Tubal Sterilization Discharge Date Comments 3 Dr. Cerda plus BTL Discharge Information Feeding Method Contraceptive Method Maternal HG B and HCT Levels
[2025-05-05 20:29] LABS: Alanine Aminotransferase 19 U/L (6-35); Albumin Level 3.8 g/dL (3.5-5.1); Alkaline Phosphatase 76 U/L (38-126); Anion Gap 7 mmol/L (4-12); Aspartate Amino Transferase 50 U/L (14-36); Bilirubin,Total 0.3 mg/dL (0.2-1.3); Blood Urea Nitrogen 12 mg/dL (7-17); Calcium 9.3 mg/dL (8.4-10.2); Carbon Dioxide 23 mmol/L (22-30); Chloride 107 mmol/L (98-107); Cholesterol 210 mg/dL (0-200); Estimated Glomerular Filt Rate > 60; Glucose 92 mg/dL (65-110); HDL Direct 60 mg/dL; Potassium 4.3 mmol/L (3.4-5.0); Sodium 137 mmol/L (137-145); Total Protein 6.9 g/dL (6.3-8.2); Triglycerides 120 mg/dL (<150); Uric Acid 3.8 mg/dL (2.5-7.5)
[2025-05-05 20:31] LABS: Rheumatoid Factor < 12.0 IU/ML (<12)
[2025-05-05 20:35] LABS: LDL Cholesterol Direct 113 mg/dL
[2025-05-05 20:40] LABS: Hemoglobin 12.9 g/dL (12.0-15.0); Mean Corpuscular HGB Conc 30.7 g/dl (32-36); Mean Corpuscular Volume 91.1 fl (80-100); Mean Platelet Volume 9.6 fl (7.4-10.4); Platelet Count Result 466 k/mm3 (150-375); Red Blood Count 4.61 M/mm3 (4.2-5.4); Red Cell Distribution Width 14.2 % (11.5-14.5); White Blood Count 8.3 K/mm3 (4.5-10.0)
[2025-05-05 21:27] LABS: Erythrocyte Sedimentation Rate 16 mm/hr (0-20)
[2025-05-07 02:59] LABS: ANA Cascade Screen NEGATIVE (NEGATIVE)
== END 2025-05-05 08:35 | disposition home or self-care (01) ==
LOC: ANHBWCLAB 08:37
PROVIDERS: PCP Nurse Practitioner Adult Health; Visit Provider Nurse Practitioner Adult Health
DX: M79.641 Pain in right hand (principal); M79.642 Pain in left hand; E03.9 Hypothyroidism, unspecified; Z00.00 Encounter for general adult medical examination without abnormal findings; R53.83 Other fatigue; R79.89 Other specified abnormal findings of blood chemistry
CPT/HCPCS: 36415; 73130; 80053; 80061; 82306; 82607; 84443; 84550; 85027; 85652; 86038; 86225; 86235; 86364; 86430

== ENCOUNTER 2025-05-11 08:19 | Outpatient (CLI) | payer BC, SELFPAY ==
[2025-05-11 19:48] LABS: Basophils Absolute Auto 0.1 K/mm3 (0.0-0.1); Basophils Percent Auto 0.7 % (0.2-1.2); Eosinophils Absolute Auto 0.1 K/mm3 (0-0.3); Eosinophils Percent Auto 1.4 % (0-4.4); Hematocrit 42.8 % (37.0-47.0); Immature Granulocyte Absolute 0.01 K/mm3 (0.00-0.031); Immature Granulocyte Percent A 0.1 % (0-0.5); Lymphocytes Absolute Auto 4.09 K/mm3 (0.9-3.2); Lymphocytes Percent Auto 43.5 % (18.3-44.2); Mean Corpuscular HGB Conc 30.4 g/dl (32-36); Mean Corpuscular Hemoglobin 27.9 pg (26-34); Mean Corpuscular Volume 91.8 fl (80-100); Mean Platelet Volume 9.6 fl (7.4-10.4); Monocytes Absolute Auto 0.7 K/mm3 (0.1-0.6); Monocytes Percent Auto 7.9 % (2.6-8.5); Neutrophils Absolute Auto 4.4 K/mm3 (1.3-6.7); Neutrophils Percent Auto 46.4 % (45.5-73.1); Platelet Count Result 468 k/mm3 (150-375); Red Blood Count 4.66 M/mm3 (4.2-5.4); Red Cell Distribution Width 14.1 % (11.5-14.5); White Blood Count 9.4 K/mm3 (4.5-10.0)
== END 2025-05-11 08:20 | disposition home or self-care (01) ==
LOC: ANHBWCLAB 08:20
PROVIDERS: PCP Nurse Practitioner Adult Health; Visit Provider Nurse Practitioner Adult Health
DX: D75.839 Thrombocytosis, unspecified (principal)
CPT/HCPCS: 36415; 85025

== ENCOUNTER 2025-05-12 14:26 | Outpatient (CLI) | payer BC, SELFPAY ==
--- OUTSIDE RECORDS SUMMARY | 2025-05-12 15:07 | XMS_ITS | Clinical Summary ---
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 * POCT influenza A/B (02/22/2025 3:48 PM CDT) Rapid Influenza A Ag Negative Negative, Invalid Rapid Influenza B Ag Negative Negative, Invalid Nasal 02/22/2025 3:48 PM CDT Mahi Elizabeth CERAMIC TILE INSTALLATION HELPER POINT OF CARE TEST ORDERA BLES Final Result from Last 3 Months Insurance [place] [employer] OOS Advance Directives For more information, please contact: [phone] * Full Code (Latest Code Status on File) Date Activated Date Inactivated Comments 06/08/2022 11:46 PM 06/10/2022 9:22 PM Care Teams Publishing Editor Relationship Specialty Start Date End Date Miscellaneous, Not In File PCP - General 06/08/22 Hira Chamorro MD Consulting Physician General Surgery 06/10/22
--- OUTSIDE RECORDS SUMMARY | 2025-05-12 15:07 | XMS_ITS | Clinical Summary ---
Author Organization [facility] Address [address] [place] [address] Care Team Providers Care Professor Of Mathematics Name Role Phone Unavailable Primary Care Provider Unavailabl e Source Comments [facility],non-owned Affiliates and Associated Physician Practices is amultiple site organization consisting of ambulatory clinics and hospital sitesin [place], [place], [place] and [place]. This disclosure is being madepursuant to the Care Everywhere program and may not contain all information available regarding this patient. Last updated 18.[facility] [employer] Social History Tobacco Use Types Packs/Day Years [...]
--- OUTSIDE RECORDS SUMMARY | 2025-05-12 15:07 | XMS_ITS | Data Portability ---
Author Organization [facility] Talisha LEWIS Address [address] [place] [address] Care Team Providers Care Educational Programming Director Name Role Phone YAJAIRA LAO Primary Care Provider TERESITA CERDA Planning Specialist Assessment Encounter Date Assessment Date Assessment LastModified by Organization Details LastModified Time 02/24/2018 02/24/2018 deep penetration dyspareunia over last 5 months. No CMT or bladder tenderness today - seems likely to be an ovary issue. 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 Lab unlisted lab - igp, rfx aptima HPV ascu 2018 019 [facility], [address], [place], [place], [address], 9 16:11:22 pap, IG + reflex HR HPV 2017 018 [facility], [address], [place], [address], 8 11:15:49 Referral None recorded. Procedures None recorded. Surgeries None recorded. Imaging None recorded. Medication Orders 1 mg-20 mcg (24)/75 mg (4) tablet 2023 024 [id number], [address], [place], [place], [id number], 4 10:51:22 erythromyci n with ethanol 2 % topical solution 2015 016 [facility], [address], [place], [address], 4 10:24:14 fluoxetine 20 mg capsule 2015 [facility]16 [facility], [address] [facility] [address], [place], [place], [id number], 6 12:46:02 Patient TargetsNo targets recorded. Patient Instructions Encounter Date Encounter Id Patient Instructions Last Modified By Organization Details Last Modified Time 02/01/2016 [id number] Take meds as prescribed Healthy diet/ exercise f/u in 3 month nsuthan Not available 02/01/2016 10:11:39 11/07/2016 [id number] Return to clinic if fever or problem worsen nsuthan Not available 11/07/2016 12:47:02 pt stopped meds for anxiety and depression , doing ok without meds per pt. 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 Results Created Date Observation Date Name Description Value Unit Range Abnormal Flag Note LastModifiedBy Organization Detail LastModifiedTime 02/25/20 18 02/26/2018 pap, IG + refle x HR HPV diagnosis: Commen t NEGAT WENDY FOR INTRA EPITH ELIAL ROSA Goodman AND VELMA LENNON . Not Available [facility] ([facility]) [address], [place], [address], 02/26/2018 11:15:49 02/25/20 18 02/26/2018 pap, IG + refle x HR HPV specimen adequacy: Agustin goyal Satis facto ry for evalu ation . Endoc ervic al and/o r squam ous metap lasti c cells (endo cervi monalisa compo nent) are prese nt. Not Available [facility] ([facility]) [address] [place], [address], 02/26/2018 11:15:49 02/25/20 18 02/26/2018 pap, IG + refle x HR HPV clinician provided ICD10: Agustin goyal N94.1 0 Not Available [facility] ([facility]) [address] [place], [address], 02/26/2018 11:15:49 02/25/20 18 02/26/2018 pap, IG + refle x HR HPV performed by: Agustin allen, Cytot echno janki t (ASCP ) Not Available [facility] ([facility]) [address] [place], [address], 02/26/2018 11:15:49 02/25/20 18 02/26/2018 pap, IG + refle x HR HPV . . Not Available [facility] ([facility]) [address] [place], [address], 02/26/2018 11:15:49 02/25/20 18 02/26/2018 pap, IG [...] ts do occur . Not Available [facility] ([facility]) [address] [place], [address], 02/26/2018 11:15:49 02/25/20 18 02/26/2018 pap, IG + refle x HR HPV test methodology: Commen t This liqui d based ThinP rep(R ) pap test was scree mariam with the use of an image guide keaton syste m. Not Available [facility] ([facility]) [address], [place], [address], 02/26/2018 11:15:49 02/25/20 18 02/26/2018 pap, IG + refle x HR HPV . Commen t The HPV DNA refle x crite sukhdeep were not met with this speci men resul t there fore, no HPV testi ng was perfo rmed. Not Available [facility] ([facility]) [address] [place], [address], 02/26/2018 11:15:49 02/25/20 18 02/26/2018 pap, IG + refle x HR HPV chlamydia, nuc. acid amp Negati ve negati ve Not Available [facility] ([facility]) [address] [place], [address], 02/26/2018 11:15:49 02/25/20 18 02/26/2018 pap, IG + refle x HR HPV gonococcus, nuc. acid amp Negati ve negati ve Not Available [facility] ([facility]) [address] [place], [address], 02/26/2018 11:15:49 07/19/20 19 07/20/2019 pap, IG + refle x HR HPV diagnosis: Commen t NEGAT WENDY FOR INTRA EPITH ELIAL LESIO N OR MALREMY CITLALLI . Not Available [facility] ([facility]) [address] [place], [address], 07/20/2019 16:11:22 08/19/20 19 07/20/2019 pap, IG + refle x HR HPV specimen adequacy: Agustin goyal Satis facto ry for evalu ation . Endoc ervic al and/o r squam ous metap lasti c cells (endo cervi monalisa compo nent) are prese nt. Not Available [facility] ([facility]) [address] [place], [address], 07/20/2019 16:11:22 07/19/20 19 07/20/2019 pap, IG + refle x HR HPV clinician provided ICD10: Agustin goyal Z01.4 19 Not Available [facility] ([facility]) [address] [place], [address], 07/20/2019 16:11:22 07/19/20 19 07/20/2019 pap, IG + refle x HR HPV performed by: Agustin Grace rs, Cytot koki goyal (ASCP ) Not Available [facility] ([facility]) [address] [place], [address], 07/20/2019 16:11:22 07/19/20 19 07/20/2019 pap, IG + refle x HR HPV . . Not Available [facility] ([facility]) [address] [place], [address], 07/20/2019 16:11:22 07/19/20 19 07/20/2019 pap, IG [...] ts do occur . Not Available [facility] ([facility]) [address] [place], [address], 07/20/2019 16:11:22 07/19/20 19 07/20/2019 pap, IG + refle x HR HPV test methodology: Commen t This liqui d based ThinP rep(R ) pap test was screyaneth mariam with the use of an image guide keaton canseco Not Available [facility] ([facility]) [address] [place], [address], 07/20/2019 16:11:22 07/19/20 19 07/20/2019 pap, IG + refle x HR HPV . Commen t The HPV DNA refle x crite sukhdeep were not met with this speci men resul t there fore, no HPV testi ng was perfo rmed. Not Available [facility] ([facility]) [address] [place], [address], 07/20/2019 16:11:22 08/24/20 24 08/31/2024 IGP, RFX APTIM A HPV ASCU diagnosis: COMMEN T abnormal EPITH ELIAL CELL ABNOR MALIT Y. ATYPI MONALISA SQUAM OUS CELLS OF UNDET ERMIN ED SIGNI FICAN CE (ASC- US). Not Available [facility] ([facility]) [address] [place], [address], 09/01/2024 07:15:51 08/24/20 24 08/31/2024 IGP, RFX APTIM A HPV ASCU specimen adequacy: COMMEN T Satis facto ry for evalu ation . Endoc ervic al and/o r squam ous metap lasti c cells (endo cervi monalisa compo nent) are prese nt. Not Available [facility] ([facility]) [address] [place], [address], 09/01/2024 07:15:51 08/24/20 24 08/31/2024 IGP, RFX APTIM A HPV ASCU clinician provided ICD10: AGUSTIN T Z01.4 19 Not Available [facility] ([facility]) [address] [place], [address], 09/01/2024 07:15:51 08/24/2008/31/2024 IGP, RFX APTIM A HPV ASCU performed by: AGUSTIN cardona, Cytot echno logis t (ASCP ) Not Available [facility] ([facility]) [address] [place], [address], 09/01/2024 07:15:51 08/24/2008/31/2024 IGP, RFX APTIM A HPV ASCU electronical ly signed by: AGUSTIN Elizabeth MD, Patho logis t Not Available [facility] ([facility]) [address] [place], [address], 09/01/2024 07:15:51 08/24/2008/31/2024 IGP, RFX APTIM A HPV ASCU . . Not Available [facility] ([facility]) [address] [facility], [place], [address], 09/01/2024 07:15:51 08/24/2008/31/2024 IGP, RFX APTIM A HPV ASCU pathologist provided ICD10: AGUSTIN Goyal R87.6 10 Not Available [facility] ([facility]) [address] [place], [address], 09/01/2024 07:15:51 08/24/2008/31/2024 IGP, RFX APTIM A [...] ts do occur . Not Available [facility] ([facility]) [address] [facility], [place], [address], 09/01/2024 07:15:51 08/24/2008/31/2024 IGP, RFX APTIM A HPV ASCU test methodology: - The Thin Prep( R) Image r was unabl e to read this speci men. There fore a manua l revie w was perfo rmed. Not Available [facility] ([facility]) [address], [place], [address], 09/01/2024 07:15:51 08/24/20 24 08/31/2024 IGP, RFX APTIM A HPV ASCU . COMMEN T See below for HPV testi ng resul ts. Not Available [facility] ([facility]) [address] [facility], [place], [address], 09/01/2024 07:15:51 08/24/2008/31/2024 HPV APTIM A HPV aptima Negati ve negati ve This nucle ic acid ampli ficat ion test detec ts fourt een high- risk HPV types (16,1 8,31, 33,35 ,39,4 5,51, 52,56 ,58,5 9,66, 68) witho ut diffe renti ation . Not Available [facility] ([facility]) [address], [place], [address], 09/01/2024 07:15:52 10/04/20 16 09/30/2016 XR, chest No observ ation record ed. [email or web address] [place] [address] [place], [address], 10/07/2016 11:45:21 10/04/20 16 09/30/2016 XR, ribs, unila teral No observ ation record ed. [place] [address] [place], [address], 10/07/2016 11:44:51 Result Notes None recorded. Problems Name Problem SNOMED Code Status Onset Date Resolution Date Notes Provider Name and Address Organization Details Recorded Time Mixed anxiety and depressive disorder 535662976 Active Yajaira Lao MD Attn: Marquez ziegler,[address] , [place], [address], [facility] 6 10:11:39 Problem Notes None recorded. Procedures Surgical History Date Name Laterality Status Provider Name and Address Organization Details Recorded Time 4 Date of Last Pap Smear completed HERSON Gambino [facility] 09/01/2024 09:43:56 3 Tubal Ligation completed Priscila Kuo RN [facility] 11/04/2014 10:00:32 Caesarean Section completed James Rogers [facility] 12/30/2014 11:05:48 Imaging Results None recorded. Procedure Notes None recorded. Medical Equipment None Reported. Allergies Allergen ID Allergen Name Allergen Category Reaction Reaction Severity Criticality Documentation Date Start Date Code Code System Note Provider Name and Address Organization Details Recorded Time 5811 latex environme nt,medica tion Not available Not available Not available 11/04/2014 42434 91 RxNorm Priscila Kuo RN [facility], [facility] 4 10:00:32 Medications Name Sig Start Date [...] Updated DateTime 6 12 /min 166.37 cm 55079.7 13936 g 25.8 kg/m2 99 /min 100 % 100 % 98.5 [degF] 116 mm[Hg] 80 mm[Hg] Shiela Suarez MA [facility] 6 09:40:25 Date Recorded Body height Body mass index (BMI) Body weight Systolic blood pressure Diastolic blood pressure Provider Name and Address Organization Details Last Updated DateTime 02/24/2018 166.37 cm 25 kg/m2 82962.91 g 118 mm[Hg] 82 mm[Hg] Kylie goodman MA [facility] 8 11:09:58 Date Recorded Body height Body mass index (BMI) Body weight Systolic blood pressure Diastolic blood pressure Provider Name and Address Organization Details Last Updated DateTime 07/19/2019 166.37 cm 25.4 kg/m2 57693.82 g 112 mm[Hg] 76 mm[Hg] Kylie goodman MA [facility] 9 16:24:37 Date Recorded Body height Body mass index (BMI) Body weight Systolic blood pressure Diastolic blood pressure Provider Name and Address Organization Details Last Updated DateTime 08/24/2024 166.37 cm 27.9 kg/m2 60500.7 g 114 mm[Hg] 76 mm[Hg] Carolynn Vidal [facility] 4 10:35:10 Date Recorded Body height Body weight Body mass index (BMI) Heart rate Respiratory rate Body temperature Oxygen saturation Oxygen saturation in Arterial blood by Pulse oximetry Systolic blood pressure Diastolic blood pressure Provider Name and Address Organization Details Last Updated DateTime 6 166.37 cm 52410.6 3 g 25.1 kg/m2 101 /min 12 /min 98.3 [degF] 99 % 99 % 108 mm[Hg] 76 mm[Hg] Diana Moore [facility] 6 12:09:52 Social History Question Answer Notes LastModified by LIKECHARITY Details LastModified Time Tobacco Smoking Status Never Smoker Carmel Solis RN [facility], [facility] 12/30/2014 11:24:40 What Is Your Level Of [...] is your level of alcohol consumption? Occasional [email or web address] Information not available 12/30/2014 What is your exercise level? Occasional Information not available 11/07/2016 Mental Status None recorded. Family History Relationship Description Onset Age of this Age Resolved Age Notes LastModified by Organization Details LastModified Time Maternal Grandmother Diabetes mellitus [email or web address] Not available 2015 09:40:51 Medical History Condition Response Coronary Artery Disease N Other N High Blood Pressure N Atrial Fibrillation N Kidney or Bladder Problems Y Thyroid Problems Y GI Problems N Depression Y COPD N Blood Clots N Skin Problems N Anemia N Heart Attack (PR) N Anxiety Disorder N Diabetes N Muscle, [...] Recorded Time Tdap 12/01/2011 completed Diana parmar [facility] 11/07/2016 12:12:07 influenza, unspecified formulation 08/31/2016 claritza parmar [facility] 11/07/2016 12:12:24 Past Encounters Encounter ID Performer Location Encounter Start Date Encounter Closed Date Diagnosis/Indication Diagnosis SNOMED-CT Code Diagnosis ICD10 Code Diagnosis Note [id number] MD Wilber Preston (Adult Med) [address] [place] [address] 12/30/2014 10:54:00 12/30/2014 12:15:15 Mixed anxiety and depressive disorder 188293806 continue same Adult heal th examination [id number] MD Maryanne Meier [facility] ([place] [address]) [address] [place] [address], [place] [address] 02/03/2015 11:54:52 02/03/2015 14:54:42 Gynecologic examination 70198967 [id number] MD Wilber Preston (Adult Med) [address] [place] [address] 06/09/2015 09:50:51 06/09/2015 10:42:20 History and physical examination, [facility] [id number] pt is uptodate with Tdap and 2 step TB needs MMR and chicken pox titres Mixed anxi ety and depressive disorder 979672035 continue same [id number] MD Wilber Preston (Adult Med) [address] [place] [address] 02/01/2016 09:17:48 02/02/2016 11:00:44 Mixed anxiety and depressive disorder 003835387 F34.1 Restart med [id number] MD Wilber Preston (Adult Med) [address] [place] [address] 11/07/2016 12:01:55 11/07/2016 13:09:46 Foot pain 25236936 M79.672 of L/big toe -mild inflamatio nconservat wendy mx- NSAID for pain /ice Acne 52957252 L70.9 [id number] MD Maryanne Meier [facility] ([facility] [address]) [address] [place] [address] 02/24/2018 10:39:39 02/27/2018 18:34:56 Body mass index 25-29 - overweight 849090831 Z68.25 Dyspareunia 32131450 N94 .10 Vaginal discharge 622623 006 N89.8 [id number] MD Maryanne Meier [address] [facility] [address] [place] [address] 07/19/2019 16:07:20 07/20/2019 09:36:22 Gynecologic examination 37755856 Z01.876 [id number] MD Maryanne Meier [address] [facility] [address] [place] [address] 08/24/2024 10:14:54 08/26/2024 16:19:31 Depression screening 847539797 Z13.31 Gynecologi c examination 42915203 Z01.419 Menorrhagia 285063507 N9 2.0 Health Concerns Section Related Observation LastModified by Organization Detai ls LastModified Time None Recorded Concern Status LastModified by Organization Details LastModified Time None Recorded Advance Directives Directive None Recorded Payers Insurance Date Sequence Insurance Name Policy Number Policy Trevino Covered Member ID Trevino Member ID Guarantor Name 09/01/2024 1 [employer] BETTER [employer] [place] ON OR AFTER 10/31/2020 (MEDICAID REPLACEMENT - HMO) [id number] Bhargav Hernandez [id number] Melody Juarez Hernandez 09/08/2024 1 [employer] [id number] Bhargav Rodasyer [id number] Melody Juarez Hernandez 08/24/2024 1 [employer] ([place]) [id number] Bhargav Hernandez [id number] Melody Juarez Hernandez 02/23/2018 1 [facility] (MEDICAID HMO) [id number] Melody Gould [id number] Melody Juarez Hernandez 08/30/2024 2 [facility] [id number] Bhargav Hernandez [id number] Melody Juarez Hernandez 02/24/2018 1 MEDICAID-[place]: [facility] Melody Gould [id number] Melody Hernandez Notes Date Note Type Note [...] meds. Yajaira Lao MD Attn: Accounting,[address] [place], [address], [facility] 02/01/2016 10:16:24 11/07/2016 text/html Generic HPI TemplateReported bypatient.Location:L/b ig toe Quality:aching with mild swelling Duration:2 month Context:pt had pedicure 2 month ago , started noticing pain with swelling on L/big toe . Associated Symptoms:denied feverNotes:pt also has acne in back of neck and chest area . Yajaira Lao MD Attn: Accounting,[address] [place], [address], [facility] 11/07/2016 12:47:10 07/19/2019 text/html Annual GYNReport ed [...] PMDD Teresita Cerda MD Attn: Accounting,[address] [place], [address], [facility] 07/19/2019 16:38:32 08/24/2024 text/html Annual GYNReport ed [...] human Teresita Cerda MD Attn: Accounting[address] [place], [address], [facility] 08/24/2024 10:51:32 OBGyn Episode Ob Episode Information Episode Created Date Number of Fetuses Patient Bloodtype Patient rh Status Prepregnancy Weight lbs Domestic Partner Domestic Partner Phone Father Name Corporate Security Officer Status 11/04/20 14 1 CLOSED Fetus Data [...] Domestic Partner Domestic Partner Phone Father Name Corporate Security Officer Status 11/04/20 14 1 CLOSED Fetus Data [...] Domestic Partner Domestic Partner Phone Father Name Corporate Security Officer Status 11/04/20 14 1 CLOSED Fetus Data [...]
--- OUTSIDE RECORDS SUMMARY | 2025-05-12 15:07 | XMS_ITS | Referral Summary ---
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 Gender Identity Not on file Sexual Orientation [...] Veritor) Presumptive Negative Presumptive Negative, Invalid [facility] Nasal 02/22/2025 3:48 PM CDT Mahi Elizabeth CHICKEN STUFFER POINT OF CARE TEST ORDERA BLES Final Result [facility] [address] [place] [address], [facility] * POCT influenza A/B (02/22/2025 3:48 PM CDT) Rapid Influenza A Ag Negative Negative, Invalid Rapid Influenza B Ag Negative Negative, Invalid Nasal 02/22/2025 3:48 PM CDT Mahi Elizabeth CHICKEN STUFFER POINT OF CARE TEST ORDERA BLES Final Result from Last 3 Months Insurance [employer] OOS Advance Directives For more information, please contact: [phone] * Full Code (Latest Code Status on File) Date Activated Date Inactivated Comments 06/08/2022 11:46 PM 06/10/2022 9:22 PM Care Teams Supervisor Screen Printing Relationship Specialty Start Date End Date Miscellaneous, Not In File PCP - General 06/08/22 Hira Chamorro MD Consulting Physician General Surgery 06/10/22
--- OUTSIDE RECORDS SUMMARY | 2025-05-12 15:08 | XMS_ITS | Encounter Summary ---
Author Organization [facility] Address [address] [place] [address] Care Team Providers Care Manager Business Name Role Phone Unavailable Primary Care Provider Unavailabl e Encounter Details Date Type Department Care Team (Late st Contact Info) Description 06/23/2020 Lab Requisition [facility] [address] [place] [address] Chelita Mantilla DO [address] [facility] [address] [place] [address] Social History Tobacco Use Types Packs/Day Years [...] AM CDT) Case Report Dermatopathology Report Case: [id number] Authorizing Provider: Chelita Mantilla DO Collected: 06/22/2020 12:00 AM Ordering Location: [facility] Received: 06/23/2020 07:23 [...] The specimen consists of a shave measuring 5c4o5yo, bisected. Jar 0. Specimen B: Received is one formalin filled container labeled with the patient's name and designated left inner thigh. The specimen consists of a shave measuring 8w3e6so. Jar 0. 0 1:52 PM CDT DERMATOPATHOLOGY [...] characteristic determined by the Dermatopathology Laboratory at [facility], directed by Dr. Leander Lema. These tests need not be, and therefore are not, approved by the [place] Food and Drug Administration. The tests are used for clinical purposes. Billing Codes Specimen Charges Stain Charges 64782 99044 1 1 0 1:52 PM CDT DERMATOPATHOLOGY LABORATORY Embedded Images 0 1:52 PM CDT DERMATOPATHOLOGY LABORATORY Pathology/Cytology TISSUE SPECIMEN FROM SKIN / Unknown 06/22/2020 06/23/2020 7:23 AM CDT Miscellaneous samples (specimen) TISSUE SPECIMEN FROM SKIN / Unknown 06/22/2020 06/23/2020 7:23 AM CDT us Chelita Mantilla DO LAB - PATHOLOGY/CYTOLOGY ORDERABLES Final Result DERMATOPATHOLOGY LABORATORY [facility] - Department of Dermatology Second Time Worker Center/[facility]aur[facility] [address] [place] [address], [facility] [phone] documented in this encounter Visit Diagnoses Not on filedocumented in this encounter
[2025-05-12 20:12] LABS: Basophils Absolute Auto 0.1 K/mm3 (0.0-0.1); Basophils Percent Auto 0.7 % (0.2-1.2); Eosinophils Absolute Auto 0.1 K/mm3 (0-0.3); Eosinophils Percent Auto 0.8 % (0-4.4); Hematocrit 42.4 % (37.0-47.0); Hemoglobin 13.2 g/dL (12.0-15.0); Immature Granulocyte Absolute 0.03 K/mm3 (0.00-0.031); Immature Granulocyte Percent A 0.3 % (0-0.5); Lymphocytes Absolute Auto 3.43 K/mm3 (0.9-3.2); Lymphocytes Percent Auto 34.1 % (18.3-44.2); Mean Corpuscular HGB Conc 31.1 g/dl (32-36); Mean Corpuscular Hemoglobin 27.7 pg (26-34); Mean Corpuscular Volume 89.1 fl (80-100); Mean Platelet Volume 9.9 fl (7.4-10.4); Monocytes Absolute Auto 0.8 K/mm3 (0.1-0.6); Neutrophils Absolute Auto 5.7 K/mm3 (1.3-6.7); Neutrophils Percent Auto 56.1 % (45.5-73.1); Platelet Count Result 497 k/mm3 (150-375); Red Blood Count 4.76 M/mm3 (4.2-5.4); Red Cell Distribution Width 13.7 % (11.5-14.5); White Blood Count 10.1 K/mm3 (4.5-10.0)
== END 2025-05-12 14:27 | disposition home or self-care (01) ==
LOC: ANHBWCLAB 14:27
PROVIDERS: PCP Nurse Practitioner Adult Health; Visit Provider Nurse Practitioner Adult Health
DX: D75.839 Thrombocytosis, unspecified (principal)
CPT/HCPCS: 36415; 85025

== ENCOUNTER 2025-05-17 12:22 | Outpatient (CLI) | payer BC, SELFPAY ==
--- OUTSIDE RECORDS SUMMARY | 2025-05-17 12:54 | XMS_ITS | Referral Summary ---
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 Gender Identity Not on file Sexual [...] (BD Veritor) Presumptive Negative Presumptive Negative, Invalid [facility] Nasal 02/22/2025 3:48 PM CDT Mahi Elizabeth EMPLOYEE RELATIONS SPECIALIST POINT OF CARE TEST ORDERA BLES Final Result [facility] [address] [place] [address], [facility] * POCT influenza A/B (02/22/2025 3:48 PM CDT) Rapid Influenza A Ag Negative Negative, Invalid Rapid Influenza B Ag Negative Negative, Invalid Nasal 02/22/2025 3:48 PM CDT Mahi Elizabeth EMPLOYEE RELATIONS SPECIALIST POINT OF CARE TEST ORDERA BLES Final Result from Last 3 Months Insurance Virdia OOS Advance Directives For more information, please contact: [phone] * Full Code (Latest Code Status on File) Date Activated Date Inactivated Comments 06/08/2022 11:46 PM 06/10/2022 9:22 PM Care Teams Senior Health Consultant Relationship Specialty Start Date End Date Miscellaneous, Not In File PCP - General 06/08/22 Hira Chamorro MD Consulting Physician General Surgery 06/10/22
--- OUTSIDE RECORDS SUMMARY | 2025-05-17 12:54 | XMS_ITS | Data Portability ---
Author Organization [facility] Talisha LEWIS Address [address] [place] [address] Care Team Providers Care Extra Gang Supervisor Name Role Phone YAJAIRA LAO Primary Care Provider [phone] TERESITA CERDA Convenience Store Manager Assessment Encounter Date Assessment Date Assessment LastModified by Organization Details LastModified Time 02/24/2018 02/24/2018 deep penetration dyspareunia over last 5 months. No CMT or bladder tenderness today - seems likely to be an ovary issue. If tests (-) may consider US/OCPs Not available 02/24/2018 11:31:04 07/19/2019 07/19/2019 Clinical Supervisor exam normal. 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 Lab unlisted lab - igp, rfx aptima HPV ascu 2018 019 [facility], [address], [address], [place], [place], [address], 9 16:11:22 pap, IG + reflex HR HPV 2017 018 [facility], [address], [place], [address], 8 11:15:49 Referral None recorded. Procedures None recorded. Surgeries None recorded. Imaging None recorded. Medication Orders 1 mg-20 mcg (24)/75 mg (4) tablet 2023 024 [id number], [address], [place], [place], [id number], 4 10:51:22 erythromyci n with ethanol 2 % topical solution 2015 016 [facility], [address], [place], [address], 4 10:24:14 fluoxetine 20 mg capsule 2015 016 [facility], [address] [facility] [address], [place], [place], [id number], 6 12:46:02 Patient TargetsNo targets recorded. Patient Instructions Encounter Date Encounter Id Patient Instructions Last Modified By Organization Details Last Modified Time 02/01/2016 [id number] Take meds as prescribed Healthy diet/ exercise f/u in 3 month nsuthan Not available 02/01/2016 10:11:39 11/07/2016 [id number] Return to clinic if fever or problem worsen nsuthan Not available 11/07/2016 12:47:02 pt stopped meds for anxiety and depression , doing ok without meds per pt. 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 Results Created Date Observation Date Name Description Value Unit Range Abnormal Flag Note LastModifiedBy Organization Detail LastModifiedTime 02/25/20 18 02/26/2018 pap, IG + refle x HR HPV diagnosis: Commen t NEGAT WENDY FOR INTRA EPITH ELIAL ROSA Goodman AND VELMA LENNON . Not Available [facility] ([facility]) [address] [facility] [address], [place], [address], 02/26/2018 11:15:49 02/25/20 18 02/26/2018 pap, IG + refle x HR HPV specimen adequacy: Agustin goyal Satis facto ry for evalu ation . Endoc ervic al and/o r squam ous metap lasti c cells (endo cervi monalisa compo nent) are prese nt. Not Available [facility] ([facility]) [address] [place], [address], 02/26/2018 11:15:49 02/25/20 18 02/26/2018 pap, IG + refle x HR HPV clinician provided ICD10: Agustin goyal N94.1 0 Not Available [facility] ([facility]) [address] [place], [address], 02/26/2018 11:15:49 02/25/20 18 02/26/2018 pap, IG + refle x HR HPV performed by: Agustin allen, Cytot echno janki t (ASCP ) Not Available [facility] ([facility]) [address] [place], [address], 02/26/2018 11:15:49 02/25/20 18 02/26/2018 pap, IG + refle x HR HPV . . Not Available [facility] ([facility]) [address] [place], [address], 02/26/2018 11:15:49 02/25/20 18 02/26/2018 pap, IG [...] ts do occur . Not Available [facility] ([facility]) [address] [place], [address], 02/26/2018 11:15:49 02/25/20 18 02/26/2018 pap, IG + refle x HR HPV test methodology: Commen t This liqui d based ThinP rep(R ) pap test was scree mariam with the use of an image guide keaton syste m. Not Available [facility] ([facility]) [address] [facility] [address], [place], [address], 02/26/2018 11:15:49 02/25/20 18 02/26/2018 pap, IG + refle x HR HPV . Commen t The HPV DNA refle x crite sukhdeep were not met with this speci men resul t there fore, no HPV testi ng was perfo rmed. Not Available [facility] ([facility]) [address] [place], [address], 02/26/2018 11:15:49 02/25/20 18 02/26/2018 pap, IG + refle x HR HPV chlamydia, nuc. acid amp Negati ve negati ve Not Available [facility] ([facility]) [address] [place], [address], 02/26/2018 11:15:49 02/25/20 18 02/26/2018 pap, IG + refle x HR HPV gonococcus, nuc. acid amp Negati ve negati ve Not Available [facility] ([facility]) [address] [place], [address], 02/26/2018 11:15:49 07/19/20 19 07/20/2019 pap, IG + refle x HR HPV diagnosis: Commen t NEGAT WENDY FOR INTRA EPITH ELIAL LESIO N OR MALREMY CITLALLI . Not Available [facility] ([facility]) [address] [place], [address], 07/20/2019 16:11:22 08/19/20 19 07/20/2019 pap, IG + refle x HR HPV specimen adequacy: Agustin goyal Satis facto ry for evalu ation . Endoc ervic al and/o r squam ous metap lasti c cells (endo cervi monalisa compo nent) are prese nt. Not Available [facility] ([facility]) [address] [place], [address], 07/20/2019 16:11:22 07/19/20 19 07/20/2019 pap, IG + refle x HR HPV clinician provided ICD10: Agustin goyal Z01.4 19 Not Available [facility] ([facility]) [address] [place], [address], 07/20/2019 16:11:22 07/19/20 19 07/20/2019 pap, IG + refle x HR HPV performed by: Agustin Grace rs, Cytot koki goyal (ASCP ) Not Available [facility] ([facility]) [address] [place], [address], 07/20/2019 16:11:22 07/19/20 19 07/20/2019 pap, IG + refle x HR HPV . . Not Available [facility] ([facility]) [address] [place], [address], 07/20/2019 16:11:22 07/19/20 19 07/20/2019 pap, IG [...] ts do occur . Not Available [facility] ([facility]) [address] [place], [address], 07/20/2019 16:11:22 07/19/20 19 07/20/2019 pap, IG + refle x HR HPV test methodology: Commen t This liqui d based ThinP rep(R ) pap test was screyaneth mariam with the use of an image guide keaton canseco Not Available [facility] ([facility]) [address] [place], [address], 07/20/2019 16:11:22 07/19/20 19 07/20/2019 pap, IG + refle x HR HPV . Commen t The HPV DNA refle x crite sukhdeep were not met with this speci men resul t there fore, no HPV testi ng was perfo rmed. Not Available [facility] ([facility]) [address] [place], [address], 07/20/2019 16:11:22 08/24/20 24 08/31/2024 IGP, RFX APTIM A HPV ASCU diagnosis: COMMEN T abnormal EPITH ELIAL CELL ABNOR MALIT Y. ATYPI MONALISA SQUAM OUS CELLS OF UNDET ERMIN ED SIGNI FICAN CE (ASC- US). Not Available [facility] ([facility]) [address] [place], [address], 09/01/2024 07:15:51 08/24/20 24 08/31/2024 IGP, RFX APTIM A HPV ASCU specimen adequacy: COMMEN T Satis facto ry for evalu ation . Endoc ervic al and/o r squam ous metap lasti c cells (endo cervi monalisa compo nent) are prese nt. Not Available [facility] ([facility]) [address] [place], [address], 09/01/2024 07:15:51 08/24/20 24 08/31/2024 IGP, RFX APTIM A HPV ASCU clinician provided ICD10: AGUSTIN T Z01.4 19 Not Available [facility] ([facility]) [address] [facility] [place], [address], 09/01/2024 07:15:51 08/24/2008/31/2024 IGP, RFX APTIM A HPV ASCU performed by: AGUSTIN cardona, Cytot echno logis t (ASCP ) Not Available [facility] ([facility]) [address] [place], [address], 09/01/2024 07:15:51 08/24/2008/31/2024 IGP, RFX APTIM A HPV ASCU electronical ly signed by: AGUSTIN Elizabeth MD, Patho logis t Not Available [facility] ([facility]) [address] [place], [address], 09/01/2024 07:15:51 08/24/2008/31/2024 IGP, RFX APTIM A HPV ASCU . . Not Available [facility] ([facility]) [address] [facility], [place], [address], 09/01/2024 07:15:51 08/24/2008/31/2024 IGP, RFX APTIM A HPV ASCU pathologist provided ICD10: AGUSTIN Goyal R87.6 10 Not Available [facility] ([facility]) [address] [place], [address], 09/01/2024 07:15:51 08/24/2008/31/2024 IGP, RFX APTIM A [...] ts do occur . Not Available [facility] ([facility]) [address] [facility], [place], [address], 09/01/2024 07:15:51 08/24/2008/31/2024 IGP, RFX APTIM A HPV ASCU test methodology: - The Thin Prep( R) Image r was unabl e to read this speci men. There fore a manua l revie w was perfo rmed. Not Available [facility] ([facility]) [address] [facility], [place], [address], 09/01/2024 07:15:51 08/24/20 24 08/31/2024 IGP, RFX APTIM A HPV ASCU . COMMEN T See below for HPV testi ng resul ts. Not Available [facility] ([facility]) [address] [facility], [place], [address], 09/01/2024 07:15:51 08/24/2008/31/2024 HPV APTIM A HPV aptima Negati ve negati ve This nucle ic acid ampli ficat ion test detec ts fourt een high- risk HPV types (16,1 8,31, 33,35 ,39,4 5,51, 52,56 ,58,5 9,66, 68) witho ut diffe renti ation . Not Available [facility] ([facility]) [address] [facility], [place], [address], 09/01/2024 07:15:52 10/04/20 16 09/30/2016 XR, chest No observ ation record ed. [place] [address] [place], [address], 10/07/2016 11:45:21 10/04/20 16 09/30/2016 XR, ribs, unila teral No observ ation record ed. [email or web address] [place] [address] [place], [address], 10/07/2016 11:44:51 Result Notes None recorded. Problems Name Problem SNOMED Code Status Onset Date Resolution Date Notes Provider Name and Address Organization Details Recorded Time Mixed anxiety and depressive disorder 509449024 Active Yajaira Lao MD Attn: Marquez ziegler,[address] , [place], [address], [facility] 6 10:11:39 Problem Notes None recorded. Procedures Surgical History Date Name Laterality Status Provider Name and Address Organization Details Recorded Time 4 Date of Last Pap Smear completed HERSON Gambino [facility] 09/01/2024 09:43:56 3 Tubal Ligation completed Priscila Kuo RN [facility] 11/04/2014 10:00:32 Caesarean Section completed James Rogers [facility] 12/30/2014 11:05:48 Imaging Results None recorded. Procedure Notes None recorded. Medical Equipment None Reported. Allergies Allergen ID Allergen Name Allergen Category Reaction Reaction Severity Criticality Documentation Date Start Date Code Code System Note Provider Name and Address Organization Details Recorded Time 5811 latex environme nt,medica tion Not available Not available Not available 11/04/2014 12102 91 RxNorm Priscila Kuo RN [facility], [facility] 4 10:00:32 Medications Name Sig Start Date Stop Date Status Note LastModified by Organization Details LastModified Time metronidazo le 500 mg tabs 08/24 completed Not Available Not Available Not Available fluconazole 150 mg tabs 08/24 completed Not Available Not Available Not Available tab 12/20 completed Not Available Not Available [...] Updated DateTime 6 12 /min 166.37 cm 32609.7 05891 g 25.8 kg/m2 99 /min 100 % 100 % 98.5 [degF] 116 mm[Hg] 80 mm[Hg] Shiela Suarez MA [facility] 6 09:40:25 Date Recorded Body height Body mass index (BMI) Body weight Systolic blood pressure Diastolic blood pressure Provider Name and Address Organization Details Last Updated DateTime 02/24/2018 166.37 cm 25 kg/m2 40441.91 g 118 mm[Hg] 82 mm[Hg] Kylie goodman [place] - [place] 8 11:09:58 Date Recorded Body height Body mass index (BMI) Body weight Systolic blood pressure Diastolic blood pressure Provider Name and Address Organization Details Last Updated DateTime 07/19/2019 166.37 cm 25.4 kg/m2 98062.82 g 112 mm[Hg] 76 mm[Hg] Kylie goodman MA [facility] 9 16:24:37 Date Recorded Body height Body mass index (BMI) Body weight Systolic blood pressure Diastolic blood pressure Provider Name and Address Organization Details Last Updated DateTime 08/24/2024 166.37 cm 27.9 kg/m2 01473.7 g 114 mm[Hg] 76 mm[Hg] Carolynn Vidal [facility] 4 10:35:10 Date Recorded Body height Body weight Body mass index (BMI) Heart rate Respiratory rate Body temperature Oxygen saturation Oxygen saturation in Arterial blood by Pulse oximetry Systolic blood pressure Diastolic blood pressure Provider Name and Address Organization Details Last Updated DateTime 6 166.37 cm 16593.6 3 g 25.1 kg/m2 101 /min 12 /min 98.3 [degF] 99 % 99 % 108 mm[Hg] 76 mm[Hg] Diana Moore [facility] 6 12:09:52 Social History Question Answer Notes LastModified by [employer] Details LastModified Time Tobacco Smoking Status Never Smoker Carmel Solis RN [facility], [facility] 12/30/2014 11:24:40 What Is Your Level Of [...] is your level of alcohol consumption? Occasional [id number] Information not available 12/30/2014 What is your [...] Skin Problems N Anemia N Heart Attack (MS) N Anxiety Disorder N Diabetes N Muscle, [...] Recorded Time Tdap 12/01/2011 completed Diana parmar [facility] 11/07/2016 12:12:07 influenza, unspecified formulation 08/31/2016 claritza parmar [facility] 11/07/2016 12:12:24 Past Encounters Encounter ID Performer Location Encounter Start Date Encounter Closed Date Diagnosis/Indication Diagnosis SNOMED-CT Code Diagnosis ICD10 Code Diagnosis Note [id number] MD Wilber Preston (Adult Med) [address] [place] [address] 12/30/2014 10:54:00 12/30/2014 12:15:15 Mixed anxiety and depressive disorder 704450202 continue same Adult heal th examination 875570537 [id number] MD Maryanne Meier [facility] ([place] [address]) [address] [facility] [address] [place], [place] [address], [place] [address] 02/03/2015 11:54:52 02/03/2015 14:54:42 Gynecologic examination 10675015 [id number] MD Wilber Preston (Adult Med) [address] [place] [address] 06/09/2015 09:50:51 06/09/2015 10:42:20 History and physical examination, [facility] [id number] pt is uptodate with Tdap and 2 step TB needs MMR and chicken pox titres Mixed anxi ety and depressive disorder 735762621 continue same [id number] MD Wilber Preston (Adult Med) [address] [place] [address] 02/01/2016 09:17:48 02/02/2016 11:00:44 Mixed anxiety and depressive disorder 924887259 F34.1 Restart med [id number] MD Wilber Preston (Adult Med) [address] [place] [address] 11/07/2016 12:01:55 11/07/2016 13:09:46 Foot pain 34818536 M79.672 of L/big toe -mild inflamatio nconservat wendy mx- NSAID for pain /ice Acne 82506683 L70.9 [id number] MD Maryanne Meier [facility] ([facility]) [address] [facility] [address] [place] [address] 02/24/2018 10:39:39 02/27/2018 18:34:56 Body mass index 25-29 - overweight 237807300 Z68.25 Dyspareunia 40645629 N94 .10 Vaginal discharge 367718 006 N89.8 [id number] MD Maryanne Meier [address] [facility] [address] [place] [address] 07/19/2019 16:07:20 07/20/2019 09:36:22 Gynecologic examination 44049921 Z01.236 [id number] MD Maryanne Meier 14 OB [address] [facility] [address] [place] [address] 08/24/2024 10:14:54 08/26/2024 16:19:31 Depression screening 914778412 Z13.31 Gynecologi c examination 17212437 Z01.419 Menorrhagia 647149910 N9 2.0 Health Concerns Section Related Observation [...] OR AFTER 10/31/2020 (MEDICAID REPLACEMENT - HMO) [id number] Bhargav Hernandez [id number] Melody Juarez Hernandez 09/08/2024 1 [employer]ET[employer] [address]2688 Bhargav Rodasyer [id number] Melody Juarez Hernandez 08/24/2024 1 [employer] (POS II) [address]64 Bhargav Hernandez [id number] Melody Juarez Hernandez 02/23/2018 1 [facility] (MEDICAID HMO) [id number] Melody Gould [id number] Melody Juarez Hernandez 08/30/2024 2 [facility] [id number] Bhargav Hernandez [id number] Melody Juarez Hernandez 02/24/2018 1 [place]: [employer] Melody Gould [id number] Melody Hernandez Notes Date Note Type Note [...] meds. Yajaira Lao MD Attn: Accounting,[address] [place], [address], [facility] 02/01/2016 10:16:24 11/07/2016 text/html Generic HPI TemplateReported bypatient.Location:L/b ig toe Quality:aching with mild swelling Duration:2 month Context:pt had pedicure 2 month ago , started noticing pain with swelling on L/big toe . Associated Symptoms:denied feverNotes:pt also has acne in back of neck and chest area . Yajaira Lao MD Attn: Accounting,[address] [place], [address], [facility] 11/07/2016 12:47:10 07/19/2019 text/html Annual GYNReport ed [...] PMDD Teresita Cerda MD Attn: Accounting[address] [place], [address], [facility] 07/19/2019 16:38:32 08/24/2024 text/html Annual GYNReport ed [...] human Teresita Cerda MD Attn: Accounting[address] [place], [address], [facility] 08/24/2024 10:51:32 OBGyn Episode Ob Episode Information Episode Created Date Number of Fetuses Patient Bloodtype Patient rh Status Prepregnancy Weight lbs Domestic Partner Domestic Partner Phone Father Name Foot Orthopedist Status 11/04/20 14 1 CLOSED Fetus Data [...] Domestic Partner Domestic Partner Phone Father Name Foot Orthopedist Status 11/04/20 14 1 CLOSED Fetus Data [...] Domestic Partner Domestic Partner Phone Father Name Foot Orthopedist Status 11/04/20 14 1 CLOSED Fetus Data [...]
--- OUTSIDE RECORDS SUMMARY | 2025-05-17 12:54 | XMS_ITS | Encounter Summary ---
Author Organization [facility] Address [address] [place] [address] Care Team Providers Care Automobile Racer Name Role Phone Unavailable Primary Care Provider Unavailabl e Encounter Details Date Type Department Care Team (Late st Contact Info) Description 06/23/2020 Lab Requisition [facility] [address] [facility] [address] [facility] [address] [place] [address] Chelita Mantilla DO [address] [facility] [address] [place] [address] Social History Tobacco Use Types Packs/Day Years [...] AM CDT) Case Report Dermatopathology Report Case: [id number] Authorizing Provider: Chelita Mantilla DO Collected: 06/22/2020 12:00 AM Ordering Location: [facility] Received: 06/23/2020 07:23 AM Pathologist: [...] The specimen consists of a shave measuring [id number], bisected. Jar 0. Specimen B: Received is one formalin filled container labeled with the patient's name and designated left inner thigh. The specimen consists of a shave measuring [id number]. Jar 0. 0 1:52 PM CDT DERMATOPATHOLOGY [...] characteristic determined by the Dermatopathology Laboratory at [facility], directed by Dr. Leander Lema. These tests need not be, and therefore are not, approved by the [place] Food and Drug Administration. The tests are used for clinical purposes. Billing Codes Specimen Charges Stain Charges 44570 09119 1 1 0 1:52 PM CDT DERMATOPATHOLOGY LABORATORY Embedded Images 0 1:52 PM CDT DERMATOPATHOLOGY LABORATORY Pathology/Cytology TISSUE SPECIMEN FROM SKIN / Unknown 06/22/2020 06/23/2020 7:23 AM CDT Miscellaneous samples (specimen) TISSUE SPECIMEN FROM SKIN / Unknown 06/22/2020 06/23/2020 7:23 AM CDT us Chelita Mantilla DO LAB - PATHOLOGY/CYTOLOGY ORDERABLES Final Result DERMATOPATHOLOGY LABORATORY [facility] - Department of Dermatology [facility] [address] [place] [address], [facility] [phone] documented in this encounter Visit Diagnoses Not on filedocumented in this encounter
--- OUTSIDE RECORDS SUMMARY | 2025-05-17 12:54 | XMS_ITS | Clinical Summary ---
Author Organization [facility] Address [address] [place] [address] Care Team Providers Care Director Of Dance Name Role Phone Unavailable Primary Care Provider Unavailabl e Source Comments [facility],non-owned Affiliates and Associated Physician Practices is amultiple site organization consisting of ambulatory clinics and hospital sitesin [place], [place], [place] and [place]. This disclosure is being madepursuant to the Care Everywhere program and may not contain all information available regarding this patient. Last updated 18.[facility] [email or web address] Social History Tobacco Use Types Packs/Day Years [...]
--- OUTSIDE RECORDS SUMMARY | 2025-05-17 12:54 | XMS_ITS | Clinical Summary ---
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 Gender Identity Not on file Sexual Orientation [...] (BD Veritor) Presumptive Negative Presumptive Negative, Invalid [facility] Nasal 02/22/2025 3:48 PM CDT Mahi Elizabeth DEPUTY PROGRAM MANAGER POINT OF CARE TEST ORDERA BLES Final Result [facility] [address] [place] [address], [facility] * POCT influenza A/B (02/22/2025 3:48 PM CDT) Rapid Influenza A Ag Negative Negative, Invalid Rapid Influenza B Ag Negative Negative, Invalid Nasal 02/22/2025 3:48 PM CDT Mahi Elizabeth DEPUTY PROGRAM MANAGER POINT OF CARE TEST ORDERA BLES Final Result from Last 3 Months Insurance [employer] OOS Advance Directives For more information, please contact: [phone] * Full Code (Latest Code Status on File) Date Activated Date Inactivated Comments 06/08/2022 11:46 PM 06/10/2022 9:22 PM Care Teams Flow Coordinator Relationship Specialty Start Date End Date Miscellaneous, Not In File PCP - General 06/08/22 Hira Chamorro MD Consulting Physician General Surgery 06/10/22
--- NOTE | 2025-05-17 13:22 | CONSULT_PTH ---
PATIENT: Melody Hernandez LOC: [facility] U#:[id number] AGE/SX: 39/F ROOM: RE05/17/[address]: Gilma Kelley APRN : 1985 BED: DIS: 05/17/2025 SPEC #: [id number] RECD: 05/17/25 20:48 STATUS: VITA REShayla #: [id number] RONEL: 05/17/25 13:[address]: Gilma Kelley DEPT: [facility] Consult RECD BY: John Camarillo MLT, ([facility]) Tissues: A - Peripheral Smear Procedures: Hematology Consult
[2025-05-17 20:15] LABS: Basophils Absolute Auto 0.1 K/mm3 (0.0-0.1); Basophils Percent Auto 0.4 % (0.2-1.2); Eosinophils Percent Auto 0.1 % (0-4.4); Hematocrit 45.7 % (37.0-47.0); Hemoglobin 14.1 g/dL (12.0-15.0); Immature Granulocyte Absolute 0.09 K/mm3 (0.00-0.031); Immature Granulocyte Percent A 0.7 % (0-0.5); Lymphocytes Absolute Auto 3.11 K/mm3 (0.9-3.2); Lymphocytes Percent Auto 23.3 % (18.3-44.2); Mean Corpuscular HGB Conc 30.9 g/dl (32-36); Mean Corpuscular Hemoglobin 27.8 pg (26-34); Mean Corpuscular Volume 90.1 fl (80-100); Mean Platelet Volume 9.8 fl (7.4-10.4); Monocytes Absolute Auto 0.8 K/mm3 (0.1-0.6); Monocytes Percent Auto 5.6 % (2.6-8.5); Neutrophils Absolute Auto 9.3 K/mm3 (1.3-6.7); Neutrophils Percent Auto 69.9 % (45.5-73.1); Platelet Count Result 542 k/mm3 (150-375); Red Blood Count 5.07 M/mm3 (4.2-5.4); Red Cell Distribution Width 14.2 % (11.5-14.5); White Blood Count 13.4 K/mm3 (4.5-10.0)
[2025-05-20 12:40] LABS: Lyme Disease Ab (IgM), Blot NEGATIVE (NEGATIVE); Lyme Disease Ab(IgG), Blot NEGATIVE (NEGATIVE)
== END 2025-05-17 12:23 | disposition home or self-care (01) ==
LOC: ANHBWCLAB 12:23
PROVIDERS: PCP Nurse Practitioner Adult Health; Visit Provider Nurse Practitioner Adult Health
DX: M25.40 Effusion, unspecified joint (principal); M25.60 Stiffness of unspecified joint, not elsewhere classified; D75.839 Thrombocytosis, unspecified
CPT/HCPCS: 36415; 85025; 86617

== ENCOUNTER 2025-05-18 10:51 | Emergency (ER) | payer BC, SELFPAY ==
--- NOTE | ~2025-05-18 | XR_ITS ---
XR chest 1V portable Ordering provider: Mia Kennedy MD History: 39 years Female with . Not feeling well . Comparison: None. FINDINGS: MEDIASTINUM: The cardiac silhouette is not enlarged. LUNGS: No infiltrates, effusions or pneumothorax. OTHER: No free air under the diaphragm. IMPRESSION: No acute cardiopulmonary pathology. Reviewed, dictated and finalized at location A.
[2025-05-18 11:18] VITALS: BP 151/109; PULSE 105; RESP 20; TEMP 36.3; O2SAT 100
[2025-05-18 11:27] VITALS: BP 154/96; PULSE 104; RESP 18; TEMP 36.7; O2SAT 100
--- NOTE | 2025-05-18 11:34 | ECG_ITS ---
Test Date: 2025-05-18 11:38:35 Measurements Intervals Union Rate: 93 P: 60 ID: 111 QRS: 37 QRSD: 74 T: 36 QT: 330 QTc: 411 Interpretive Statements SINUS RHYTHM WITH SHORT ID INTERVAL BASELINE ARTIFACT- I, II, III, AVR, AVL, AVF, V1-V6 BORDERLINE ECG No previous ECG available for comparison Electronically Signed On 05-18-2025 11:58:31 CDT by Bradley Acevedo D.O.
--- NOTE | 2025-05-18 11:56 | ED_ITS ---
HPI - General Adult General Chief complaint: Recheck/Abnormal Lab/Rx Stated complaint: abnormal labs, jaw pain, left arm pain Time Seen by Provider: 05/18/25 11:56 Source: patient Mode of arrival: ambulatory Limitations: no limitations History of Present Illness HPI narrative: 39 years old white female came to the ED with her by private car complaining of not feeling good for months, swelling joint of hands and been seen by her family physician few times in the past and currently undergoing workup to rule out autoimmune disease. Patient blood workup today showed increase platelet count, patient got anxious and worried about that. Patient is telling me that she have jaw pain and probably because she was clenching her teeth all night long, headache, left arm aches. Patient denies any recent new physical activities, history of anxiety and depression and hypothyroidism. Patient does not smoke cigarettes, does not use minute, drinks alcohol occasionally.. Patient currently main complaint is general body aches Related Data Allergies Allergy/AdvReac Type Severity Reaction Status Date / Time codeine Allergy Unknown Verified 05/18/25 11:22 latex Allergy Unknown Verified 05/18/25 11:22 tramadol Allergy Nausea and Verified 05/18/25 11:22 Vomiting Review of Systems 2 Review of Systems: All systems reviewed & are unremarkable except as noted in HPI and below PMFSH Past Medical History Medical History Body aches after vaccination Hx of migraine headaches Depression Surgical History Surgical History H/O tubal ligation H/O section Family History Family History Grandparent Cervical cancer Skin cancer Grandparent Cerebrovascular accident Diabetes mellitus Social History Social History Smoking status: Never smoker Alcohol intake: current Drinks per week: 1 Substance use: never Lack of Transportation: No Lack of Food: Never True Current Housing: I Have Housing Concerned About Future Housing: No Difficulty Paying Gas/Electric Bills: No Difficulty Paying for Meds: No Currently Unemployed: No Education: High School Diploma/GED Difficulty w/ Childcare or Family Care: No Exam 2 Narrative: General appearance: Well-developed, well-nourished, looks anxious Skin: Normal color Head: Normocephalic, nontraumatic Eyes: Clear conjunctiva ENT: Oropharynx normal, ears normal, nose normal Neck: Supple, nontender Chest and respiratory: Airway patent, no respiratory distress, no accessory muscle use Heart: Regular rate/rhythm Abdomen: Soft, nontender, no organomegaly, quiet bowel sounds Vascular: Normal peripheral pulses, normal capillary refill. Musculoskeletal: Diffuse tenderness of the upper back bilaterally mainly on the left side and upper chest bilaterally mainly on the left side and left upper extremity with palpation Neurologic: Alert and oriented ?3, SPECIAL WARFARE BOAT OPERATOR is normal as tested, no gross motor deficit Course Vital Signs Vital signs: Vital Signs Temperature 36.3 C L 05/18/25 11:18 Pulse Rate 105 H 05/18/25 11:18 Respiratory Rate 20 05/18/25 11:18 Blood Pressure 151/109 H 05/18/25 11:18 Pulse Oximetry 100 05/18/25 11:18 Oxygen Delivery Room Air 05/18/25 11:18 Temperature 36.7 C 05/18/25 11:27 Pulse Rate 104 H 05/18/25 11:27 Respiratory Rate 18 05/18/25 11:27 Blood Pressure 154/96 H 05/18/25 11:27 Pulse Oximetry 100 05/18/25 11:27 Oxygen Delivery Room Air 05/18/25 11:27 Medical Decision Making [facility] Narrative Medical decision making narrative: Patient presents with multiple symptoms as above Vital signs showing blood pressure 151/109, heart rate 105 otherwise within normal limit Physical examination showing anxious, stressed looking patient Differential diagnosis include anxiety like symptoms, autoimmune disease, urinary tract infection, pneumonia, electrolyte imbalance, dehydration Blood workup today includes CBC, CMP, sed rate, TSH, showed WBC 13.1, platelet 493 compared to 545 few hours ago, otherwise insignificant abnormality Urinalysis showed no evidence of infection EKG showed normal sinus rhythm at 93 beats per minute, borderline EKG, no previous EKG available comparison Chest x-ray showed no acute abnormality Diagnosis stress like symptoms, musculoskeletal pain The pt was discharged to home.the pt,s condition upon discharge was fair,education was provided to the pt in reference to the final impression,discharge study results,treatment,prognosis and need for follow up . Differential Diagnosis Differential Diagnosis: As above Vital Signs Vital Signs: Vital Signs Temperature 36.3 C L 05/18/25 11:18 Pulse Rate 105 H 05/18/25 11:18 Respiratory Rate 20 05/18/25 11:18 Blood Pressure 151/109 H 05/18/25 11:18 Pulse Oximetry 100 05/18/25 11:18 Oxygen Delivery Room Air 05/18/25 11:18 Temperature 36.7 C 05/18/25 11:27 Pulse Rate 104 H 05/18/25 11:27 Respiratory Rate 18 05/18/25 11:27 Blood Pressure 154/96 H 05/18/25 11:27 Pulse Oximetry 100 05/18/25 11:27 Oxygen Delivery Room Air 05/18/25 11:27 Lab Data 05/18/25 12:42 05/18/25 12:42 Labs: Lab Results 05/18/25 05/18/25 Range/Units 12:42 13:08 WBC 13.1 H (4.5-10.0) K/mm3 RBC 4.89 (4.2-5.4) M/mm3 Hgb 13.6 (12.0-15.0) g/dL Hct 42.2 (37.0-47.0) % MCV 86.3 (80-100) fl MCH 27.8 (26-34) pg MCHC 32.2 (32-36) g/dl RDW 13.8 (11.5-14.5) % Plt Count 493 H (150-375) k/mm3 MPV 9.4 (7.4-10.4) fl Immature Gran % (Auto) 0.3 (0-0.5) % Neut % (Auto) 53.3 (45.5-73.1) % Lymph % (Auto) 37.1 (18.3-44.2) % Christian % (Auto) 8.0 (2.6-8.5) % Eos % (Auto) 0.7 (0-4.4) % Baso % (Auto) 0.6 (0.2-1.2) % Lymph # (Auto) 4.84 H (0.9-3.2) K/mm3 Christian # (Auto) 1.1 H (0.1-0.6) K/mm3 Eos # (Auto) 0.1 (0-0.3) K/mm3 Baso # (Auto) 0.1 (0.0-0.1) K/mm3 Abs Immat Gran (auto) 0.04 H (0.00-0.031) K/mm3 Absolute Neuts (auto) 7.0 H (1.3-6.7) K/mm3 Absolute Nucleated RBC 0.000 (0.0-0.012) K/mm3 Nucleated RBC % 0.0 (0.0-0.2) % ESR 10 (0-20) mm/hr Sodium 136 L (137-145) mmol/L Potassium 4.0 (3.4-5.0) mmol/L Chloride 105 (98-107) mmol/L Carbon Dioxide 23 (22-30) mmol/L Anion Gap 8 (4-12) mmol/L BUN 13 (7-17) mg/dL Creatinine 0.70 (0.7-1.0) mg/dL Estim Creat Clear Calc 102 ml/min Estimated GFR > 60 (59 - ) Glucose 84 (65-110) mg/dL Calcium 9.0 (8.4-10.2) mg/dL Total Bilirubin 0.5 (0.2-1.3) mg/dL AST 27 (14-36) U/L ALT 30 (6-35) U/L Alkaline Phosphatase 73 (38-126) U/L Troponin I < 0.012 (0.000-0.034) ng/mL Total Protein 7.4 (6.3-8.2) g/dL Albumin 4.1 (3.5-5.1) g/dL Urine Color Yellow (Yellow) Urine Appearance Clear (Clear) Urine pH 7.0 (5.0-9.0) Ur Specific [place] 1.015 (1.001-1.035) Urine Protein Negative (Negative) mg/dL Urine Glucose (UA) Negative (Negative) mg/dL Urine Ketones Negative (Negative) mg/dL Ur Blood (Man) Negative (Negative) Urine Nitrate Negative (Negative) Urine Bilirubin Negative (Negative) Urine Urobilinogen 1.0 (<2.0) mg/dL Leukocyte Esterase Rfl Negative (Negative) JUANITA/UL POC Urine HCG, Qual Negative (Negative) Urine Opiates Screen Negative (Negative) Urine Methadone Screen Negative (Negative) Ur Barbiturates Screen Negative (Negative) Ur Phencyclidine Scrn Negative (Negative) Ur Amphetamine Screen Positive A (Negative) U Benzodiazepines Scrn Negative (Negative) Urine Cocaine Screen Negative (Negative) U Cannabinoids Screen Negative (Negative) Discharge Plan Discharge Clinical Impression: Musculoskeletal arm pain, Anxiety-like symptoms, Arthralgia, Reactive thrombocytosis Patient Disposition: Home Condition: Stable Instructions: Stress (ED), Musculoskeletal Pain (ED), Arthralgia (ED) Additional Instructions: Return if symptoms are worsening , call your family physician for appointment, take Tylenol as as needed for aches and pain, continue home medications. Patient Language: Pashto Prescriptions: No Action valacyclovir [Valtrex] 1 gram tablet 2,000 mg PO Q12H 1 Days Qty: 4 2RF Rx Instructions: Take without delay at 1st sign of symptoms fluoxetine 20 mg capsule See Rx Instructions .ROUTE .COMPLEX Qty: 90 3RF Dose Instruction: TAKE 1 CAPSULE BY MOUTH DAILY Rx Instructions: TAKE 1 CAPSULE BY MOUTH DAILY levothyroxine 75 mcg tablet See Rx Instructions .ROUTE .COMPLEX Qty: 90 0RF Dose Instruction: TAKE 1 TABLET BY MOUTH DAILY Rx Instructions: TAKE 1 TABLET BY MOUTH DAILY dextroamphetamine-amphetamine [Adderall XR] 30 mg capsule,extended release 24hr 30 mg PO DAILY Qty: 30 0RF cyanocobalamin (vitamin B-12) 1,000 mcg tablet, sublingual 1,000 mcg sublingual DAILY Qty: 90 0RF meloxicam 15 mg tablet 15 mg PO DAILY Qty: 90 0RF doxycycline hyclate 100 mg tablet 100 mg PO BID 10 Days Qty: 20 0RF Follow-up/Referrals: Gilma Kelley APRN [Primary Care Provider] - Stand Alone Forms: Work/School Release IP
--- OUTSIDE RECORDS SUMMARY | 2025-05-18 12:34 | XMS_ITS | Clinical Summary ---
Author Organization [facility] Address [address] [place] [address] Care Team Providers Care Garden Consultant Name Role Phone Unavailable Primary Care Provider Unavailabl e Source Comments [facility],non-owned Affiliates and Associated Physician Practices is amultiple site organization consisting of ambulatory clinics and hospital sitesin [place], [place], [place] and [place]. This disclosure is being madepursuant to the Care Everywhere program and may not contain all information available regarding this patient. Last updated 18.[facility] LS9 Social History Tobacco Use Types Packs/Day Years [...]
--- OUTSIDE RECORDS SUMMARY | 2025-05-18 12:34 | XMS_ITS | Encounter Summary ---
Author Organization [facility] Address [address] [place] [address] Care Team Providers Care Wind Tunnel Engineer Name Role Phone Unavailable Primary Care Provider Unavailabl e Encounter Details Date Type Department Care Team (Late st Contact Info) Description 06/23/2020 Lab Requisition [facility] Derm[facility] Lab [address] [place] [address] Chelita Mantilla DO [address] [place] [address] Social History Tobacco Use Types Packs/Day Years [...] AM CDT) Case Report Dermatopathology Report Case: [id number] Authorizing Provider: Chelita Mantilla DO Collected: 06/22/2020 12:00 AM Ordering Location: [facility] Lab Received: 06/23/2020 07:23 AM [...] The specimen consists of a shave measuring [id number], bisected. Jar 0. Specimen B: Received is one formalin filled container labeled with the patient's name and designated left inner thigh. The specimen consists of a shave measuring [id number]. Jar 0. 0 1:52 PM CDT DERMATOPATHOLOGY [...] characteristic determined by the Dermatopathology Laboratory at [facility], directed by Dr. Leander Lema. These tests need not be, and therefore are not, approved by the [place] Food and Drug Administration. The tests are used for clinical purposes. Billing Codes Specimen Charges Stain Charges 08880 31807 1 1 0 1:52 PM CDT DERMATOPATHOLOGY LABORATORY Embedded Images 0 1:52 PM CDT DERMATOPATHOLOGY LABORATORY Pathology/Cytology TISSUE SPECIMEN FROM SKIN / Unknown 06/22/2020 06/23/2020 7:23 AM CDT Miscellaneous samples (specimen) TISSUE SPECIMEN FROM SKIN / Unknown 06/22/2020 06/23/2020 7:23 AM CDT us Chelita Mantilla DO LAB - PATHOLOGY/CYTOLOGY ORDERABLES Final Result DERMATOPATHOLOGY LABORATORY [facility] - Department of Dermatology [facility] [address] [place] [address], [facility] [phone] documented in this encounter Visit Diagnoses Not on filedocumented in this encounter
--- OUTSIDE RECORDS SUMMARY | 2025-05-18 12:34 | XMS_ITS | Referral Summary ---
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 Gender Identity Not on file Sexual Orientation [...] (BD Veritor) Presumptive Negative Presumptive Negative, Invalid [facility] Nasal 02/22/2025 3:48 PM CDT Mahi Elizabeth LOADING RACK SUPERVISOR POINT OF CARE TEST ORDERA BLES Final Result [facility] [address] [place] [address], [facility] * POCT influenza A/B (02/22/2025 3:48 PM CDT) Rapid Influenza A Ag Negative Negative, Invalid Rapid Influenza B Ag Negative Negative, Invalid Nasal 02/22/2025 3:48 PM CDT Mahi Elizabeth LOADING RACK SUPERVISOR POINT OF CARE TEST ORDERA BLES Final Result from Last 3 Months Insurance [employer] OOS Advance Directives For more information, please contact: [phone] * Full Code (Latest Code Status on File) Date Activated Date Inactivated Comments 06/08/2022 11:46 PM 06/10/2022 9:22 PM Care Teams Air Pollution Specialist Relationship Specialty Start Date End Date Miscellaneous, Not In File PCP - General 06/08/22 Hira Chamorro MD Consulting Physician General Surgery 06/10/22
--- OUTSIDE RECORDS SUMMARY | 2025-05-18 12:34 | XMS_ITS | Clinical Summary ---
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 Gender Identity Not on file Sexual Orientation [...] (BD Veritor) Presumptive Negative Presumptive Negative, Invalid [facility] Nasal 02/22/2025 3:48 PM CDT Mahi Elizabeth HEADLINE WRITER POINT OF CARE TEST ORDERA BLES Final Result [facility] [address] [place] [address], [facility] * POCT influenza A/B (02/22/2025 3:48 PM CDT) Rapid Influenza A Ag Negative Negative, Invalid Rapid Influenza B Ag Negative Negative, Invalid Nasal 02/22/2025 3:48 PM CDT Mahi Elizabeth HEADLINE WRITER POINT OF CARE TEST ORDERA BLES Final Result from Last 3 Months Insurance [employer] OOS Advance Directives For more information, please contact: [phone] * Full Code (Latest Code Status on File) Date Activated Date Inactivated Comments 06/08/2022 11:46 PM 06/10/2022 9:22 PM Care Teams Chip Bin Operator Relationship Specialty Start Date End Date Miscellaneous, Not In File PCP - General 06/08/22 Hira Chamorro MD Consulting Physician General Surgery 06/10/22
[2025-05-18 12:48] LABS: Basophils Absolute Auto 0.1 K/mm3 (0.0-0.1); Basophils Percent Auto 0.6 % (0.2-1.2); Eosinophils Absolute Auto 0.1 K/mm3 (0-0.3); Eosinophils Percent Auto 0.7 % (0-4.4); Hematocrit 42.2 % (37.0-47.0); Hemoglobin 13.6 g/dL (12.0-15.0); Immature Granulocyte Absolute 0.04 K/mm3 (0.00-0.031); Immature Granulocyte Percent A 0.3 % (0-0.5); Lymphocytes Absolute Auto 4.84 K/mm3 (0.9-3.2); Lymphocytes Percent Auto 37.1 % (18.3-44.2); Mean Corpuscular HGB Conc 32.2 g/dl (32-36); Mean Corpuscular Hemoglobin 27.8 pg (26-34); Mean Corpuscular Volume 86.3 fl (80-100); Mean Platelet Volume 9.4 fl (7.4-10.4); Monocytes Absolute Auto 1.1 K/mm3 (0.1-0.6); Neutrophils Percent Auto 53.3 % (45.5-73.1); Platelet Count Result 493 k/mm3 (150-375); Red Blood Count 4.89 M/mm3 (4.2-5.4); Red Cell Distribution Width 13.8 % (11.5-14.5); White Blood Count 13.1 K/mm3 (4.5-10.0)
[2025-05-18 12:49] LABS: Add Urine Microscopic? NO; Appearance Urine Clear (Clear); Bilirubin Urine Negative (Negative); Blood Urine Negative (Negative); Color Urine Yellow (Yellow); Glucose Urine UA Negative (Negative); Ketones Urine Negative (Negative); Leukocyte Esterase Ur Negative LEU/UL (Negative); Nitrate Urine Negative (Negative); Protein Urine Negative (Negative); Specific Grav Ur 1.015 (1.001-1.035)
[2025-05-18 12:59] LABS: Alanine Aminotransferase 30 U/L (6-35); Albumin Level 4.1 g/dL (3.5-5.1); Alkaline Phosphatase 73 U/L (38-126); Anion Gap 8 mmol/L (4-12); Aspartate Amino Transferase 27 U/L (14-36); Bilirubin,Total 0.5 mg/dL (0.2-1.3); Blood Urea Nitrogen 13 mg/dL (7-17); Carbon Dioxide 23 mmol/L (22-30); Chloride 105 mmol/L (98-107); Estimated CRCL calculation 102 ml/min; Estimated Glomerular Filt Rate > 60; Glucose 84 mg/dL (65-110); Sodium 136 mmol/L (137-145); Total Protein 7.4 g/dL (6.3-8.2)
[2025-05-18 13:11] LABS: BEDSIDEPREGUCG Negative (Negative)
[2025-05-18 13:12] LABS: Amphetamine Screen Urine Positive (Negative); Barbiturate Screen Urine Negative (Negative); Benzodiazepines Screen Urine Negative (Negative); Cannabinoid Screen Urine Negative (Negative); Cocaine Screen Urine Negative (Negative); Methadone Screen Urine Negative (Negative); Opiate Screen Urine Negative (Negative); Phencyclidine Screen Urine Negative (Negative)
[2025-05-18 13:19] LABS: Erythrocyte Sedimentation Rate 10 mm/hr (0-20); Troponin I < 0.012 ng/mL (0.000-0.034)
[2025-05-18] MEDS: LORazepam (*CRX) 1 MG TABLET PO (13:22)
--- OUTSIDE RECORDS SUMMARY | 2025-05-18 13:39 | XMS_ITS | Clinical Summary ---
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 Gender Identity Not on file Sexual Orientation [...] (BD Veritor) Presumptive Negative Presumptive Negative, Invalid [facility] Nasal 02/22/2025 3:48 PM CDT Mahi Elizabeth DIRECTOR OF FAMILY SERVICE CENTER POINT OF CARE TEST ORDERA BLES Final Result [facility] [address] [place] [address], [facility] * POCT influenza A/B (02/22/2025 3:48 PM CDT) Rapid Influenza A Ag Negative Negative, Invalid Rapid Influenza B Ag Negative Negative, Invalid Nasal 02/22/2025 3:48 PM CDT Mahi Elizabeth DIRECTOR OF FAMILY SERVICE CENTER POINT OF CARE TEST ORDERA BLES Final Result from Last 3 Months Insurance [facility] OOS Advance Directives For more information, please contact: [phone] * Full Code (Latest Code Status on File) Date Activated Date Inactivated Comments 06/08/2022 11:46 PM 06/10/2022 9:22 PM Care Teams Top Cleaner Relationship Specialty Start Date End Date Miscellaneous, Not In File PCP - General 06/08/22 Hira Chamorro MD Consulting Physician General Surgery 06/10/22
--- OUTSIDE RECORDS SUMMARY | 2025-05-18 13:39 | XMS_ITS | Data Portability ---
Author Organization [facility] Talisha LEWIS Address [address] [place] [address] Care Team Providers Care International Sales Manager Name Role Phone YAJAIRA LAO Primary Care Provider TERESITA CERDA Convenience Store Manager Assessment Encounter Date Assessment Date Assessment LastModified by Organization Details LastModified Time 02/24/2018 02/24/2018 deep penetration dyspareunia over last 5 months. No CMT or bladder tenderness today - seems likely to be an ovary issue. 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 Lab unlisted lab - igp, rfx aptima HPV ascu 2018 019 [facility], [address], [place], [place], [address], 9 16:11:22 pap, IG + reflex HR HPV 2017 018 [facility], [address], [place], [address], 8 11:15:49 Referral None recorded. Procedures None recorded. Surgeries None recorded. Imaging None recorded. Medication Orders 1 mg-20 mcg (24)/75 mg (4) tablet 2023 024 [id number], [address], [place], [place], [id number], 4 10:51:22 erythromyci n with ethanol 2 % topical solution 2015 016 [facility], [address], [place], [address], 4 10:24:14 fluoxetine 20 mg capsule [facility] [address] [facility], [address], [place], [place], [id number], 6 12:46:02 Patient TargetsNo targets recorded. Patient Instructions Encounter Date Encounter Id Patient Instructions Last Modified By Organization Details Last Modified Time 02/01/2016 [id number] Take meds as prescribed Healthy diet/ exercise f/u in 3 month nsuthan Not available 02/01/2016 10:11:39 11/07/2016 [id number] Return to clinic if fever or problem worsen nsuthan Not available 11/07/2016 12:47:02 pt stopped meds for anxiety and depression , doing ok without meds per pt. 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 Results Created Date Observation Date Name Description Value Unit Range Abnormal Flag Note LastModifiedBy Organization Detail LastModifiedTime 02/25/20 18 02/26/2018 pap, IG + refle x HR HPV diagnosis: Commen t NEGAT WENDY FOR INTRA EPITH ELIAL ROSA Goodman AND VELMA LENNON . Not Available [facility] ([facility]) [address], [place], [address], 02/26/2018 11:15:49 02/25/20 18 02/26/2018 pap, IG + refle x HR HPV specimen adequacy: Agustin goyal Satis facto ry for evalu ation . Endoc ervic al and/o r squam ous metap lasti c cells (endo cervi monalisa compo nent) are prese nt. Not Available [facility] ([facility]) [address] [place], [address], 02/26/2018 11:15:49 02/25/20 18 02/26/2018 pap, IG + refle x HR HPV clinician provided ICD10: Agustin goyal N94.1 0 Not Available [facility] ([facility]) [address] [place], [address], 02/26/2018 11:15:49 02/25/20 18 02/26/2018 pap, IG + refle x HR HPV performed by: Agustin allen, Cytot echno janki t (ASCP ) Not Available [facility] ([facility]) [address] [place], [address], 02/26/2018 11:15:49 02/25/20 18 02/26/2018 pap, IG + refle x HR HPV . . Not Available [facility] ([facility]) [address] [place], [address], 02/26/2018 11:15:49 02/25/20 18 02/26/2018 pap, IG [...] ts do occur . Not Available [facility] ([facility]) [address] [place], [address], 02/26/2018 11:15:49 02/25/20 18 02/26/2018 pap, IG + refle x HR HPV test methodology: Commen t This liqui d based ThinP rep(R ) pap test was scree mariam with the use of an image guide keaton syste m. Not Available [facility] ([facility]) [address] [facility] [address], [place], [address], 02/26/2018 11:15:49 02/25/20 18 02/26/2018 pap, IG + refle x HR HPV . Commen t The HPV DNA refle x crite sukhdeep were not met with this speci men resul t there fore, no HPV testi ng was perfo rmed. Not Available [facility] ([facility]) [address] [place], [address], 02/26/2018 11:15:49 02/25/20 18 02/26/2018 pap, IG + refle x HR HPV chlamydia, nuc. acid amp Negati ve negati ve Not Available [facility] ([facility]) [address] [place], [address], 02/26/2018 11:15:49 02/25/20 18 02/26/2018 pap, IG + refle x HR HPV gonococcus, nuc. acid amp Negati ve negati ve Not Available [facility] ([facility]) [address] [place], [address], 02/26/2018 11:15:49 07/19/20 19 07/20/2019 pap, IG + refle x HR HPV diagnosis: Commen t NEGAT WENDY FOR INTRA EPITH ELIAL LESIO N OR MALREMY CITLALLI . Not Available [facility] ([facility]) [address] [place], [address], 07/20/2019 16:11:22 08/19/20 19 07/20/2019 pap, IG + refle x HR HPV specimen adequacy: Agustin goyal Satis facto ry for evalu ation . Endoc ervic al and/o r squam ous metap lasti c cells (endo cervi monalisa compo nent) are prese nt. Not Available [facility] ([facility]) [address] [place], [address], 07/20/2019 16:11:22 07/19/20 19 07/20/2019 pap, IG + refle x HR HPV clinician provided ICD10: Agustin goyal Z01.4 19 Not Available [facility] ([facility]) [address] [place], [address], 07/20/2019 16:11:22 07/19/20 19 07/20/2019 pap, IG + refle x HR HPV performed by: Agustin Grace rs, Cytot koki goyal (ASCP ) Not Available [facility] ([facility]) [address] [place], [address], 07/20/2019 16:11:22 07/19/20 19 07/20/2019 pap, IG + refle x HR HPV . . Not Available [facility] ([facility]) [address] [place], [address], 07/20/2019 16:11:22 07/19/20 19 07/20/2019 pap, IG [...] ts do occur . Not Available [facility] ([facility]) [address] [place], [address], 07/20/2019 16:11:22 07/19/20 19 07/20/2019 pap, IG + refle x HR HPV test methodology: Commen t This liqui d based ThinP rep(R ) pap test was screyaneth mariam with the use of an image guide keaton canseco Not Available [facility] ([facility]) [address] [place], [address], 07/20/2019 16:11:22 07/19/20 19 07/20/2019 pap, IG + refle x HR HPV . Commen t The HPV DNA refle x crite sukhdeep were not met with this speci men resul t there fore, no HPV testi ng was perfo rmed. Not Available [facility] ([facility]) [address] [place], [address], 07/20/2019 16:11:22 08/24/20 24 08/31/2024 IGP, RFX APTIM A HPV ASCU diagnosis: COMMEN T abnormal EPITH ELIAL CELL ABNOR MALIT Y. ATYPI MONALISA SQUAM OUS CELLS OF UNDET ERMIN ED SIGNI FICAN CE (ASC- US). Not Available [facility] ([facility]) [address] [place], [address], 09/01/2024 07:15:51 08/24/20 24 08/31/2024 IGP, RFX APTIM A HPV ASCU specimen adequacy: COMMEN T Satis facto ry for evalu ation . Endoc ervic al and/o r squam ous metap lasti c cells (endo cervi monalisa compo nent) are prese nt. Not Available [facility] ([facility]) [address] [place], [address], 09/01/2024 07:15:51 08/24/20 24 08/31/2024 IGP, RFX APTIM A HPV ASCU clinician provided ICD10: AGUSTIN T Z01.4 19 Not Available [facility] ([facility]) [address] [place], [address], 09/01/2024 07:15:51 08/24/2008/31/2024 IGP, RFX APTIM A HPV ASCU performed by: AGUSTIN cardona, Cytot echno logis t (ASCP ) Not Available [facility] ([facility]) [address] [place], [address], 09/01/2024 07:15:51 08/24/2008/31/2024 IGP, RFX APTIM A HPV ASCU electronical ly signed by: AGUSTIN Elizabeth MD, Patho logis t Not Available [facility] ([facility]) [address] [place], [address], 09/01/2024 07:15:51 08/24/2008/31/2024 IGP, RFX APTIM A HPV ASCU . . Not Available [facility] ([facility]) [address] [facility] [address], [place], [address], 09/01/2024 07:15:51 08/24/2008/31/2024 IGP, RFX APTIM A HPV ASCU pathologist provided ICD10: AGUSTIN Goyal R87.6 10 Not Available [facility] ([facility]) [address] [place], [address], 09/01/2024 07:15:51 08/24/2008/31/2024 IGP, RFX APTIM A [...] ts do occur . Not Available [facility] ([facility]) [address] [facility] [address], [place], [address], 09/01/2024 07:15:51 08/24/2008/31/2024 IGP, RFX APTIM A HPV ASCU test methodology: - The Thin Prep( R) Image r was unabl e to read this speci men. There fore a manua l revie w was perfo rmed. Not Available [facility] ([facility]) [address], [place], [address], 09/01/2024 07:15:51 08/24/20 24 08/31/2024 IGP, RFX APTIM A HPV ASCU . COMMEN T See below for HPV testi ng resul ts. Not Available [facility] ([facility]) [address] [facility] [address] [facility] [address], [place], [address], 09/01/2024 07:15:51 08/24/2008/31/2024 HPV APTIM A HPV aptima Negati ve negati ve This nucle ic acid ampli ficat ion test detec ts fourt een high- risk HPV types (16,1 8,31, 33,35 ,39,4 5,51, 52,56 ,58,5 9,66, 68) witho ut diffe renti ation . Not Available [facility] ([facility]) [address] [facility] [address] [facility] [address], [place], [address], 09/01/2024 07:15:52 10/04/20 16 09/30/2016 XR, chest No observ ation record ed. [email or web address] [place] [address] [place], [address], 10/07/2016 11:45:21 10/04/20 16 09/30/2016 XR, ribs, unila teral No observ ation record ed. [email or web address] [place] [address] [place], [address], 10/07/2016 11:44:51 Result Notes None recorded. Problems Name Problem SNOMED Code Status Onset Date Resolution Date Notes Provider Name and Address Organization Details Recorded Time Mixed anxiety and depressive disorder 205765210 Active Yajaira Lao MD Attn: Marquez ziegler,[address] , [place], [address], [facility] 6 10:11:39 Problem Notes None recorded. Procedures Surgical History Date Name Laterality Status Provider Name and Address Organization Details Recorded Time 4 Date of Last Pap Smear completed HERSON Gambino [facility] 09/01/2024 09:43:56 3 Tubal Ligation completed Priscila Kuo RN [facility] 11/04/2014 10:00:32 Caesarean Section completed James Rogers [facility] 12/30/2014 11:05:48 Imaging Results None recorded. Procedure Notes None recorded. Medical Equipment None Reported. Allergies Allergen ID Allergen Name Allergen Category Reaction Reaction Severity Criticality Documentation Date Start Date Code Code System Note Provider Name and Address Organization Details Recorded Time 5811 latex environme nt,medica tion Not available Not available Not available 11/04/2014 12789 91 RxNorm Priscila Kuo RN [facility], [facility] 4 10:00:32 Medications Name Sig Start [...] Updated DateTime 6 12 /min 166.37 cm 39310.7 22983 g 25.8 kg/m2 99 /min 100 % 100 % 98.5 [degF] 116 mm[Hg] 80 mm[Hg] Shiela Suarez MA [facility] 6 09:40:25 Date Recorded Body height Body mass index (BMI) Body weight Systolic blood pressure Diastolic blood pressure Provider Name and Address Organization Details Last Updated DateTime 02/24/2018 166.37 cm 25 kg/m2 96575.91 g 118 mm[Hg] 82 mm[Hg] Kylie goodman [place] [facility] 8 11:09:58 Date Recorded Body height Body mass index (BMI) Body weight Systolic blood pressure Diastolic blood pressure Provider Name and Address Organization Details Last Updated DateTime 07/19/2019 166.37 cm 25.4 kg/m2 14603.82 g 112 mm[Hg] 76 mm[Hg] Kylie goodman MA [facility] 9 16:24:37 Date Recorded Body height Body mass index (BMI) Body weight Systolic blood pressure Diastolic blood pressure Provider Name and Address Organization Details Last Updated DateTime 08/24/2024 166.37 cm 27.9 kg/m2 25517.7 g 114 mm[Hg] 76 mm[Hg] Carolynn Vidal [facility] 4 10:35:10 Date Recorded Body height Body weight Body mass index (BMI) Heart rate Respiratory rate Body temperature Oxygen saturation Oxygen saturation in Arterial blood by Pulse oximetry Systolic blood pressure Diastolic blood pressure Provider Name and Address Organization Details Last Updated DateTime 6 166.37 cm 79442.6 3 g 25.1 kg/m2 101 /min 12 /min 98.3 [degF] 99 % 99 % 108 mm[Hg] 76 mm[Hg] Diana Moore [facility] 6 12:09:52 Social History Question Answer Notes LastModified by Giraffe Friend Details LastModified Time Tobacco Smoking Status Never Smoker Carmel Solis RN [facility], [facility] 12/30/2014 11:24:40 What Is Your Level [...] is your level of alcohol consumption? Occasional Information not available 12/30/2014 What is your [...] Skin Problems N Anemia N Heart Attack ([place]) N Anxiety Disorder N Diabetes N Muscle, [...] Time Tdap 12/01/2011 completed Diana parmar [facility] 11/07/2016 12:12:07 influenza, unspecified formulation 08/31/2016 claritza parmar [facility] 11/07/2016 12:12:24 Past Encounters Encounter ID Performer Location Encounter Start Date Encounter Closed Date Diagnosis/Indication Diagnosis SNOMED-CT Code Diagnosis ICD10 Code Diagnosis Note [id number] MD Wilber Preston (Adult Med) [address] [place] [address] 12/30/2014 10:54:00 12/30/2014 12:15:15 Mixed anxiety and depressive disorder 565150672 continue same Adult heal th examination 274087977 [id number] MD Maryanne Meier [facility] ([place] [address]) [address] [place] [address] [place], [place] [address] [address] 02/03/2015 11:54:52 02/03/2015 14:54:42 Gynecologic examination 73673989 [id number] MD Wilber Preston (Adult Med) [address] [address] [place] [address] 06/09/2015 09:50:51 06/09/2015 10:42:20 History and physical examination, [facility] [id number] pt is uptodate with Tdap and 2 step TB needs MMR and chicken pox titres Mixed anxi ety and depressive disorder 940771079 continue same [id number] MD Wilber Preston (Adult Med) [address] [place] [address] [facility] [place] [address] 02/01/2016 09:17:48 02/02/2016 11:00:44 Mixed anxiety and depressive disorder 587110149 F34.1 Restart med [id number] MD Wilber Preston (Adult Med) [address] [place] [address] [facility] [place] [address] 11/07/2016 12:01:55 11/07/2016 13:09:46 Foot pain 14670981 M79.672 of L/big toe -mild inflamatio nconservat wendy mx- NSAID for pain /ice Acne 47644105 L70.9 [id number] MD Maryanne Meier [facility] ([facility] [address]) [address] [place] [address] 02/24/2018 10:39:39 02/27/2018 18:34:56 Body mass index 25-29 - overweight 482680906 Z68.25 Dyspareunia 69558250 N94 .10 Vaginal discharge 495211 006 N89.8 [id number] MD Maryanne Meier [address] [address] [place] [address] 07/19/2019 16:07:20 07/20/2019 09:36:22 Gynecologic examination 00777378 Z01.322 [id number] MD Maryanne Meier [address] [place] [address] 08/24/2024 10:14:54 08/26/2024 16:19:31 Depression screening 241078680 Z13.31 Gynecologi c examination 08177598 Z01.419 Menorrhagia 165578017 N9 2.0 Health Concerns Section Related Observation [...] OR AFTER 10/31/2020 (MEDICAID REPLACEMENT - HMO) [id number] Bhargav Hernandez [id number] Melody Juarez Hernandez 09/08/2024 1 [employer]ET[employer] 15830 Bhargav Rodasyer [id number] Melody Juarez Hernandez 08/24/2024 1 [employer] (POS II) 18992 Bhargav Hernandez [id number] Melody Juarez Hernandez 02/23/2018 1 [facility] (MEDICAID HMO) [id number] Melody Gould [id number] Melody Juarez Hernandez 08/30/2024 2 [facility] [id number] Bhargav Hernandez [id number] Melody Juarez Hernandez 02/24/2018 1 [place] [facility] OF PUBLIC AID Melody Gould [id number] Melody Hernandez Notes Date Note Type Note [...] meds. Yajaira Lao MD Attn: Accounting,[address] [place], [address], [facility] 02/01/2016 10:16:24 11/07/2016 text/html Generic HPI TemplateReported bypatient.Location:L/b ig toe Quality:aching with mild swelling Duration:2 month Context:pt had pedicure 2 month ago , started noticing pain with swelling on L/big toe . Associated Symptoms:denied feverNotes:pt also has acne in back of neck and chest area . Yajaira Lao MD Attn: Accounting,[address] [place], [address], [facility] 11/07/2016 12:47:10 [...] PMDD Teresita Cerda MD Attn: Accounting[address] [place], [address], [facility] 07/19/2019 16:38:32 [...] human Teresita Cerda MD Attn: Accounting,[address] [place], [address], [facility] 08/24/2024 10:51:32 OBGyn Episode Ob Episode Information Episode Created Date Number of Fetuses Patient Bloodtype Patient rh Status Prepregnancy Weight lbs Domestic Partner Domestic Partner Phone Father Name [employer] Status 11/04/20 14 1 CLOSED Fetus Data [...] Domestic Partner Domestic Partner Phone Father Name Light [employer] Status 11/04/20 14 1 CLOSED Fetus Data [...] Domestic Partner Domestic Partner Phone Father Name Light [employer] Status 11/04/20 14 1 CLOSED Fetus Data [...]
--- OUTSIDE RECORDS SUMMARY | 2025-05-18 13:39 | XMS_ITS | Encounter Summary ---
Author Organization [facility] Address [address] [address] Care Team Providers Care Workers Compensation Claims Assistant Name Role Phone Unavailable Primary Care Provider Unavailabl e Encounter Details Date Type Department Care Team (Late st Contact Info) Description 06/23/2020 Lab Requisition [facility] [address] [place] [address] Chelita Mantilla DO [address] [facility] [address] [place] [address] Social History Tobacco Use Types Packs/Day Years [...] AM CDT) Case Report Dermatopathology Report Case: [id number] Authorizing Provider: Chelita Mantilla DO Collected: 06/22/2020 12:00 AM Ordering Location: [facility] Received: 06/23/2020 07:23 AM [...] The specimen consists of a shave measuring 9l5p8oi, bisected. Jar 0. Specimen B: Received is one formalin filled container labeled with the patient's name and designated left inner thigh. The specimen consists of a shave measuring 3p2s2py. Jar 0. 0 1:52 PM CDT DERMATOPATHOLOGY [...] characteristic determined by the Dermatopathology Laboratory at [facility], directed by Dr. Leander Lema. These tests need not be, and therefore are not, approved by the [place] Food and Drug Administration. The tests are used for clinical purposes. Billing Codes Specimen Charges Stain Charges 92545 73851 1 1 0 1:52 PM CDT DERMATOPATHOLOGY LABORATORY Embedded Images 0 1:52 PM CDT DERMATOPATHOLOGY LABORATORY Pathology/Cytology TISSUE SPECIMEN FROM SKIN / Unknown 06/22/2020 06/23/2020 7:23 AM CDT Miscellaneous samples (specimen) TISSUE SPECIMEN FROM SKIN / Unknown 06/22/2020 06/23/2020 7:23 AM CDT us Chelita Mantilla DO LAB - PATHOLOGY/CYTOLOGY ORDERABLES Final Result DERMATOPATHOLOGY LABORATORY [facility] - Department of Dermatology [facility] [address] [place] [address], [facility] [phone] documented in this encounter Visit Diagnoses Not on filedocumented in this encounter
--- OUTSIDE RECORDS SUMMARY | 2025-05-18 13:39 | XMS_ITS | Clinical Summary ---
Author Organization [facility] Address [address] [place] [address] Care Team Providers Care Emergency Detail Driver Name Role Phone Unavailable Primary Care Provider Unavailabl e Source Comments [facility],non-owned Affiliates and Associated Physician Practices is amultiple site organization consisting of ambulatory clinics and hospital sitesin [place], [place], [place] and [place]. This disclosure is being madepursuant to the Care Everywhere program and may not contain all information available regarding this patient. Last updated 18.[facility] [employer] Social History Tobacco Use Types Packs/Day Years [...]
--- OUTSIDE RECORDS SUMMARY | 2025-05-18 13:39 | XMS_ITS | Referral Summary ---
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 Gender Identity Not on file Sexual Orientation [...] (BD Veritor) Presumptive Negative Presumptive Negative, Invalid [facility] Nasal 02/22/2025 3:48 PM CDT Mahi Elizabeth CUSTOM SHOE DESIGNER AND MAKER POINT OF CARE TEST ORDERA BLES Final Result [facility] [address] [place] [address], [facility] * POCT influenza A/B (02/22/2025 3:48 PM CDT) Rapid Influenza A Ag Negative Negative, Invalid Rapid Influenza B Ag Negative Negative, Invalid Nasal 02/22/2025 3:48 PM CDT Mahi Elizabeth CUSTOM SHOE DESIGNER AND MAKER POINT OF CARE TEST ORDERA BLES Final Result from Last 3 Months Insurance [employer] OOS Advance Directives For more information, please contact: [phone] * Full Code (Latest Code Status on File) Date Activated Date Inactivated Comments 06/08/2022 11:46 PM 06/10/2022 9:22 PM Care Teams Panelboard Operator Relationship Specialty Start Date End Date Miscellaneous, Not In File PCP - General 06/08/22 Hira Chamorro MD Consulting Physician General Surgery 06/10/22
[2025-05-18 13:45] VITALS: BP 155/99; PULSE 94; RESP 16; O2SAT 99
== END 2025-05-18 13:45 | disposition home or self-care (01) ==
PROVIDERS: Emergency Medicine; Emergency Provider Emergency Medicine; PCP Nurse Practitioner Adult Health
DX: M79.602 Pain in left arm (principal); M25.50 Pain in unspecified joint; D75.838 Other thrombocytosis
CPT/HCPCS: 36415; 71045; 80053; 80307; 81003; 81025; 84484; 85025; 85652; 93005; 99284; A9270

== ENCOUNTER 2025-06-07 07:47 | Outpatient (CLI) | payer BC, SELFPAY ==
--- OUTSIDE RECORDS SUMMARY | 2025-06-07 07:51 | XMS_ITS | Clinical Summary ---
Author Organization [facility] Address [address] [place] [address] Care Team Providers Care Consumer Banker Name Role Phone Unavailable Primary Care Provider Unavailabl e Source Comments [facility],non-owned Affiliates and Associated Physician Practices is amultiple site organization consisting of ambulatory clinics and hospital sitesin [place], [place], [place] and [place]. This disclosure is being madepursuant to the Care Everywhere program and may not contain all information available regarding this patient. Last updated [facility] fsboW[facility] Social History Tobacco Use Types Packs/Day Years [...] of 3 - 19+ 3-dose series) 2006 PAP SMEAR 2008 COVID-19 VACCINE ( - 2023-2 5 season) 2024 DEPRESSION SCREENING 12/01/2024 INFLUENZA VACCINE (#1) 2025 ZOSTER VACCINE (1 of 2) 2037 [...] on patient's age to complete this topic Insurance BCBS/BLUE BLUE CROSS BLUE SHIELD [place] SELF PAY NO INSURANCE Member Subscriber Plan / Payer (Ef fective for All Dates) Name:Melody Rushing Member ID:Not on file Relation to Subscriber:Not on file Name:MELODY RUSHING Subscriber ID:Not on file (Home) Address: [address] [place] [id number] Payer ID:Not on file Group ID:Not on file Type:Self Pay Address: [facility]
--- OUTSIDE RECORDS SUMMARY | 2025-06-07 07:51 | XMS_ITS | Encounter Summary ---
Author Organization [facility] Address [address] [place] [address] Care Team Providers Care Software Development Advisor Name Role Phone Unavailable Primary Care Provider Unavailabl e Encounter Details Date Type Department Care Team (Late st Contact Info) Description 06/23/2020 Lab Requisition [facility] [address] [place] [address] Chelita Mantilla DO [address] [facility] [address] [place] [address] Social History Tobacco Use Types Packs/Day Years [...] AM CDT) Case Report Dermatopathology Report Case: [id number] Authorizing Provider: Chelita Mantilla DO Collected: 06/22/2020 12:00 AM Ordering Location: [facility] Received: 06/23/2020 07:23 AM Pathologist: [...] The specimen consists of a shave measuring [id number], bisected. Jar 0. Specimen B: Received is one formalin filled container labeled with the patient's name and designated left inner thigh. The specimen consists of a shave measuring [id number]. Jar 0. 0 1:52 PM CDT DERMATOPATHOLOGY [...] characteristic determined by the Dermatopathology Laboratory at [facility], directed by Dr. Leander Lema. These tests need not be, and therefore are not, approved by the [place] Food and Drug Administration. The tests are used for clinical purposes. Billing Codes Specimen Charges Stain Charges 77805 14285 1 1 0 1:52 PM CDT DERMATOPATHOLOGY LABORATORY Embedded Images 0 1:52 PM CDT DERMATOPATHOLOGY LABORATORY Pathology/Cytology TISSUE SPECIMEN FROM SKIN / Unknown 06/22/2020 06/23/2020 7:23 AM CDT Miscellaneous samples (specimen) TISSUE SPECIMEN FROM SKIN / Unknown 06/22/2020 06/23/2020 7:23 AM CDT Chelita Mantilla DO LAB - PATHOLOGY/CYTOLOGY ORDERABLES Final Result DERMATOPATHOLOGY LABORATORY [facility] - Department of Dermatology [facility]/[address] [phone] documented in this encounter Visit Diagnoses Not on filedocumented in this encounter
--- OUTSIDE RECORDS SUMMARY | 2025-06-07 07:51 | XMS_ITS | Data Portability ---
Author Organization RAMESH Talisha LEWIS [facility] Address [address] [place] [address] Care Team Providers Care Airplane Mechanic Apprentice Name Role Phone YAJAIRA LAO Primary Care Provider TERESITA CERDA Lead Generation Specialist Assessment Encounter Date Assessment Date Assessment LastModified by Organization Details LastModified Time 02/24/2018 02/24/2018 deep penetration dyspareunia over last 5 months. No CMT or bladder tenderness today - seems likely to be an ovary issue. 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 periods normal 3 c/s and BTL; kids all doing well Not available 07/19/2019 16:38:19 08/24/2024 08/24/2024 obstetrics gynecology md exam normal, not seen in 5 years will try some OCPs for period control ( has BTL) Not available 08/24/2024 10:50:41 Plan of Treatment Reminders Order Date Submit Date Provider Last Modified By Organization Details Last Modified Time Details Appointments None recorded. Lab unlisted lab - igp, rfx aptima HPV ascu 2018 019 [place] [facility], [address], [place], [address], 9 16:11:22 pap, IG + reflex HR HPV 2017 018 [facility], [address], [address], [address], 8 11:15:49 Referral None recorded. Procedures None recorded. Surgeries None recorded. Imaging None recorded. Medication Orders 24 1 mg-20 mcg (24)/75 mg (4) tablet 2023 024 [id number], [address], [place], [place], [id number], 4 10:51:22 erythromyci n with ethanol 2 % topical solution 2015 016 [facility] [place], [address], [place], [address], 4 10:24:14 fluoxetine 20 [address] capsule [address] [facility], [address] [facility] [address], [place], [place], [id number], 6 12:46:02 Patient TargetsNo targets recorded. Patient Instructions Encounter Date Encounter Id Patient Instructions Last Modified By Organization Details Last Modified Time 02/01/2016 [id number] Take meds as prescribed Healthy diet/ exercise f/u in 3 month nsuthan Not available 02/01/2016 10:11:39 11/07/2016 [id number] Return to clinic if fever or problem worsen nsuthan Not available 11/07/2016 12:47:02 pt stopped meds for anxiety and depression , doing ok without meds per pt. 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 Results Created Date Observation Date Name Description Value Unit Range Abnormal Flag Note LastModifiedBy Organization Detail LastModifiedTime 02/25/20 18 02/26/2018 pap, IG + refle x HR HPV diagnosis: Commen t NEGAT WENDY FOR INTRA EPITH ELIAL ROSA Ceron AND VELMA LENNON . Not Available [facility] ([facility]) [address] [place], [address], 02/26/2018 11:15:49 02/25/20 18 02/26/2018 pap, IG + refle x HR HPV specimen adequacy: Agustin goyal Satis facto ry for evalu ation . Endoc ervic al and/o r squam ous metap lasti c cells (endo cervi monalisa compo nent) are prese nt. Not Available [facility] ([facility]) [address] [place], [address], 02/26/2018 11:15:49 02/25/20 18 02/26/2018 pap, IG + refle x HR HPV clinician provided ICD10: Agustin goyal N94.1 0 Not Available [facility] ([facility]) [address] [place], [address], 02/26/2018 11:15:49 02/25/20 18 02/26/2018 pap, IG + refle x HR HPV performed by: Agustin allen, Cytot koki shearer t (ASCP ) Not Available [facility] ([facility]) [address] [place], [address], 02/26/2018 11:15:49 02/25/20 18 02/26/2018 pap, IG + refle x HR HPV . . Not Available [facility] ([facility]) [address] [place], [address], 02/26/2018 11:15:49 02/25/20 18 02/26/2018 pap, IG [...] occur . Not Available [facility] ([facility]) [address] [place], [address], 02/26/2018 11:15:49 02/25/20 18 02/26/2018 pap, IG + refle x HR HPV test methodology: Commen t This liqui d based ThinP rep(R ) pap test was scree mariam with the use of an image guide keaton systyaneth m. Not Available [facility] ([facility]) [address] [facility], [place], [address], 02/26/2018 11:15:49 02/25/20 18 02/26/2018 pap, IG + refle x HR HPV . Commen t The HPV DNA refle x crite sukhdeep were not met with this speci men resul t there fore, no HPV testi ng was perfo rmed. Not Available [facility] ([facility]) [address] [place], [address], 02/26/2018 11:15:49 02/25/20 18 02/26/2018 pap, IG + refle x HR HPV chlamydia, nuc. acid amp Negati ve negati ve Not Available [facility] ([facility]) [address] [place], [address], 02/26/2018 11:15:49 02/25/20 18 02/26/2018 pap, IG + refle x HR HPV gonococcus, nuc. acid amp Negati ve negati ve Not Available [facility] ([facility]) [address] [place], [address], 02/26/2018 11:15:49 07/19/20 19 07/20/2019 pap, IG + refle x HR HPV diagnosis: Commen t NEGAT WENDY FOR INTRA EPITH ELIAL LESIO N OR VELMA LENNON . Not Available [facility] ([facility]) [address] [place], [address], 07/20/2019 16:11:22 07/19/20 19 07/20/2019 pap, IG + refle x HR HPV specimen adequacy: Agustin goyal Satis facto ry for evalu ation . Endoc ervic al and/o r squam ous metap lasti c cells (endo cervi monalisa compo nent) are prese nt. Not Available [facility] ([facility]) [address] [place], [address], 07/20/2019 16:11:22 07/19/20 19 07/20/2019 pap, IG + refle x HR HPV clinician provided ICD10: Agustin goyal Z01.4 19 Not Available [facility] ([facility]) [address] [place], [address], 07/20/2019 16:11:22 07/19/20 19 07/20/2019 pap, IG + refle x HR HPV performed by: Agustin Grace rs, Cytojay jay goyal (ASCP ) Not Available [facility] ([facility]) [address] [place], [address], 07/20/2019 16:11:22 07/19/20 19 07/20/2019 pap, IG + refle x HR HPV . . Not Available [facility] ([facility]) [address] [place], [address], 07/20/2019 16:11:22 07/19/20 19 07/20/2019 pap, IG [...] occur . Not Available [facility] ([facility]) [address] [place], [address], 07/20/2019 16:11:22 07/19/20 19 07/20/2019 pap, IG + refle x HR HPV test methodology: Commen t This liqui d based ThinP rep(R ) pap test was scree mariam with the use of an image guide keaton hanson. Not Available [facility] ([facility]) [address] [facility], [place], [address], 07/20/2019 16:11:22 07/19/20 19 07/20/2019 pap, IG + refle x HR HPV . Commen t The HPV DNA refle x crite sukhdeep were not met with this speci men resul t there fore, no HPV testi ng was perfo rmed. Not Available [facility] ([facility]) [address] [facility], [place], [address], 07/20/2019 16:11:22 08/24/20 24 08/31/2024 IGP, RFX APTIM A HPV ASCU diagnosis: COMMEN T abnormal EPITH ELIAL CELL ABNOR MALIT Y. ATYPI MONALISA SQUAM OUS CELLS OF UNDET ERMIN ED SIGNI FICAN CE (ASC- US). Not Available [facility] ([facility]) [address] [facility], [place], [address], 09/01/2024 07:15:51 08/24/20 24 08/31/2024 IGP, RFX APTIM A HPV ASCU specimen adequacy: COMMEN T Satis facto ry for evalu ation . Endoc ervic al and/o r squam ous metap lasti c cells (endo cervi monalisa compo nent) are prese nt. Not Available [facility] ([facility]) [address] [facility], [place], [address], 09/01/2024 07:15:51 08/24/20 24 08/31/2024 IGP, RFX APTIM A HPV ASCU clinician provided ICD10: AGUSTIN T Z01.4 19 Not Available [facility] ([facility]) [address] [place], [address], 09/01/2024 07:15:51 08/24/2008/31/2024 IGP, RFX APTIM A HPV ASCU performed by: AGUSTIN cardona, Cytot echno logis t (ASCP ) Not Available [facility] ([facility]) [address] [place], [address], 09/01/2024 07:15:51 08/24/2008/31/2024 IGP, RFX APTIM A HPV ASCU electronical ly signed by: AGUSTIN Elizabeth MD, Patho logis t Not Available [facility] ([facility]) [address] [place], [address], 09/01/2024 07:15:51 08/24/2008/31/2024 IGP, RFX APTIM A HPV ASCU . . Not Available [facility] ([facility]) [address] [facility], [place], [address], 09/01/2024 07:15:51 08/24/2008/31/2024 IGP, RFX APTIM A HPV ASCU pathologist provided ICD10: AGUSTIN Goyal R87.6 10 Not Available [facility] ([facility]) [address] [place], [address], 09/01/2024 07:15:51 08/24/2008/31/2024 IGP, RFX APTIM A [...] occur . Not Available [facility] ([facility]) [address] [facility], [place], [address], 09/01/2024 07:15:51 08/24/2008/31/2024 IGP, RFX APTIM A HPV ASCU test methodology: - The Thin Prep( R) Image r was unabl e to read this speci men. There fore a manua l revie w was perfo rmed. Not Available [facility] ([facility]) [address] [facility], [place], [address], 09/01/2024 07:15:51 08/24/20 24 08/31/2024 IGP, RFX APTIM A HPV ASCU . COMMEN T See below for HPV testi ng resul ts. Not Available [facility] ([facility]) [address] [facility], [place], [address], 09/01/2024 07:15:51 08/24/20 24 08/31/2024 HPV APTIM A HPV aptima Negati ve negati ve This nucle ic acid ampli ficat ion test detec ts fourt een high- risk HPV types (16,1 8,31, 33,35 ,39,4 5,51, 52,56 ,58,5 9,66, 68) witho ut diffe renti ation . Not Available [facility] ([facility]) [address] [facility], [place], [address], 09/01/2024 07:15:52 10/04/20 16 09/30/2016 XR, chest No observ ation record ed. [place] [address] [place], [address], 10/07/2016 11:45:21 10/04/20 16 09/30/2016 XR, ribs, unila teral No observ ation record ed. [email or web address] [place] [address] [place], [address], 10/07/2016 11:44:51 Result Notes None recorded. Problems Name Problem SNOMED Code Status Onset Date Resolution Date Notes Provider Name and Address Organization Details Recorded Time Mixed anxiety and depressive disorder 994402993 Active Yajaira Lao MD Attn: Marquez ziegler,[address] , [place], [address], [facility] 6 10:11:39 Problem Notes None recorded. Procedures Surgical History Date Name Laterality Status Provider Name and Address Organization Details Recorded Time 4 Date of Last Pap Smear completed HERSON Gambino [facility] 09/01/2024 09:43:56 3 Tubal Ligation completed Priscila Kuo RN [facility] 11/04/2014 10:00:32 Caesarean Section completed James Rogers [facility] 12/30/2014 11:05:48 Imaging Results None recorded. Procedure Notes None recorded. Medical Equipment None Reported. Allergies Allergen ID Allergen Name Allergen Category Reaction Reaction Severity Criticality Documentation Date Start Date Code Code System Note Provider Name and Address Organization Details Recorded Time 5811 latex environme nt,medica tion Not available Not available Not available 11/04/2014 11916 91 RxNorm Priscila Kuo RN [facility], [facility] 4 10:00:32 Medications Name Sig Start Date [...] blood by Pulse oximetry Body temperature Systolic And Diastolic Provider Name and Address Organization Details Last Updated DateTime 6 12 /min 166.37 cm 45052.7 17465 g 25.8 kg/m2 99 /min 100 % 100 % 98.5 [degF] 116/80 mm[Hg] Shiela Suarez MA [facility] 6 09:40:25 Date Recorded Body height Body mass index (BMI) Body weight Systolic And Diastolic Provider Name and Address Organization Details Last Updated DateTime 02/24/2018 166.37 cm 25 kg/m2 76803.91 g 118/82 mm[Hg] Kylie Carvalho MA [facility] 02/24/2018 11:09:58 Date Recorded Body height Body mass index (BMI) Body weight Systolic And Diastolic Provider Name and Address Organization Details Last Updated DateTime 07/19/2019 166.37 cm 25.4 kg/m2 05156.82 g 112/76 mm[Hg] Kylie Carvalho MA [facility] 07/19/2019 16:24:37 Date Recorded Body height Body mass index (BMI) Body weight Systolic And Diastolic Provider Name and Address Organization Details Last Updated DateTime 08/24/2024 166.37 cm 27.9 kg/m2 79527.7 g 114/76 mm[Hg] HERSON Gambino [facility] 08/24/2024 10:35:10 Date Recorded Body height Body weight Body mass index (BMI) Heart rate Respiratory rate Body temperature Oxygen saturation Oxygen saturation in Arterial blood by Pulse oximetry Systolic And Diastolic Provider Name and Address Organization Details Last Updated DateTime 6 166.37 cm 32987.6 3 g 25.1 kg/m2 101 /min 12 /min 98.3 [degF] 99 % 99 % 108/76 mm[Hg] Diana Moore [facility] 6 12:09:52 Social History Question Answer Notes LastModified by [employer] Details LastModified Time Tobacco Smoking Status Never Smoker Carmel Solis RN [facility], [facility] 12/30/2014 11:24:40 What Is Your Level Of [...] Functional Status Question Answer Note LastModified by [employer] Details LastModified Time Do you or have [...] Skin Problems N Anemia N Heart Attack ([place]) N Anxiety Disorder N Diabetes N Muscle, [...] Immunizations Vaccine Type Date Status Note Provider Hubert wolfe and Address Organization Details Recorded Time Tdap 12/01/2011 completed RAMESH [facility] 11/07/2016 12:12:07 influenza, unspecified formulation 08/31/2016 completed RAMESH [facility] 11/07/2016 12:12:24 Past Encounters Encounter ID Performer Location Encounter Start Date Encounter Closed Date Diagnosis/Indication Diagnosis SNOMED-CT Code Diagnosis ICD10 Code Diagnosis Note [id number] [facility] [address] [facility] [place] [address] 12/30/2014 10:54:00 12/30/2014 12:15:15 Mixed anxiety and depressive disorder 037936927 continue same Adult heal th examination [id number] [id number] MD Maryanne Meier [facility] ([facility] [address]) [address] [facility] [address] [place] [address] [place], [place] [address] [address] 02/03/2015 11:54:52 02/03/2015 14:54:42 Gynecologic examination 45488534 [id number] [facility] [address] [facility] [place] [address] 06/09/2015 09:50:51 06/09/2015 10:42:20 History and physical examination, [facility] [id number] pt is uptodate with Tdap and 2 step TB needs MMR and chicken pox titres Mixed anxi ety and depressive disorder 757848112 continue same [id number] [facility] [address] [place] [address] 02/01/2016 09:17:48 02/02/2016 11:00:44 Mixed anxiety and depressive disorder 027149143 F34.1 [facility] [id number] Yajaira Lao MD [facility] (Adult Med) [address] [place] [address] 11/07/2016 12:01:55 11/07/2016 13:09:46 Foot pain 64171834 M79.672 of L/big toe -mild inflamatio nconservat wendy mx- NSAID for pain /ice Acne 91209136 L70.9 [id number] MD Maryanne Meier [facility] ([facility] 205) [address] [facility] [address] [place] [place] [address] 02/24/2018 10:39:39 02/27/2018 18:34:56 Body mass index 25-29 - overweight 793892057 Z68.25 Dyspareunia 47452097 N94 .10 Vaginal discharge 979505 006 N89.8 [id number] MD Maryanne Meier [address] [facility] [address] [place] [address] [place] [address] 07/19/2019 16:07:20 07/20/2019 09:36:22 Gynecologic examination 68675845 Z01.426 [id number] MD Maryanne Meier 14 OB [address] [facility] [address] [place] [address] 08/24/2024 10:14:54 08/26/2024 16:19:31 Depression screening 498762980 Z13.31 Gynecologi c examination 54281604 Z01.419 Menorrhagia 036999806 N9 2.0 Health Concerns Section Related Observation [...] OR AFTER 10/31/2020 (MEDICAID REPLACEMENT - HMO) 42776 Bhargav Hernandez [id number] Melody Hernandez 09/08/2024 1 AETNA [id number] Bhargav Hernandez [id number] Melody Juarez Henrandez 08/24/2024 1 [employer]ETNA (POS [place]) [id number] Bhargav Hernandez [id number] Melody Juarez Hernandez 02/23/2018 1 [facility] (MEDICAID HMO) [id number] Melody Gould [id number] Melody Juarez Hernandez 08/30/2024 2 [facility] [id number] Bhargav Hernandez [id number] Melody Juarez Hernandez 02/24/2018 1 [place] Melody Gould [id number] Melody Hernandez Notes Date Note Type Note [...] meds. Yajaira Lao MD Attn: Accounting,[address] [place], [address], [facility] 02/01/2016 10:16:24 11/07/2016 text/html Generic HPI TemplateReported bypatient.Location:L/b ig toe Quality:aching with mild swelling Duration:2 month Context:pt had pedicure 2 month ago , started noticing pain with swelling on L/big toe . Associated Symptoms:denied feverNotes:pt also has acne in back of neck and chest area . Yajaira Lao MD Attn: Accounting,[address] [place], [address], [facility] 11/07/2016 12:47:10 07/19/2019 text/html Annual GYNReport ed [...] PMDD Teresita Cerda MD Attn: Accounting[address] [place], [address], [facility] 07/19/2019 16:38:32 08/24/2024 text/html Annual GYNReport ed [...] human Teresita Cerda MD Attn: Accounting,[address] [place], [address], [facility] 08/24/2024 10:51:32 OBGyn Episode Ob Episode Information Episode Created Date Number of Fetuses Patient Bloodtype Patient rh Status Prepregnancy Weight lbs Domestic Partner Domestic Partner Phone Father Name Conflict Resolution Professional Status 11/04/20 14 1 CLOSED Fetus Data [...] Domestic Partner Domestic Partner Phone Father Name Conflict Resolution Professional Status 11/04/20 14 1 CLOSED Fetus Data [...] Domestic Partner Domestic Partner Phone Father Name Conflict Resolution Professional Status 11/04/20 14 1 CLOSED Fetus Data [...]
--- OUTSIDE RECORDS SUMMARY | 2025-06-07 07:51 | XMS_ITS | Clinical Summary ---
Author Organization [address] Address [address] [facility] [place] [address] Care Team Providers Care Postie Name Role Phone Miscellaneous, Not In File [...] call for any further questions or concerns. 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
--- OUTSIDE RECORDS SUMMARY | 2025-06-07 07:51 | XMS_ITS | Referral Summary ---
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
[2025-06-07 19:46] LABS: Uric Acid 4.4 mg/dL (2.5-7.5)
[2025-06-07 20:04] LABS: Free T3 3.20 pg/mL (2.32-6.09); Free T4 Free Thyroxine 1.07 ng/dL (0.78-2.19)
[2025-06-07 20:10] LABS: Thyroid Stimulating Hormone 2.480 uIU/mL (0.465-4.680)
[2025-06-09 12:08] LABS: Anti-CCP Ab, IgG/IgA 7 units (0-19)
[2025-06-09 12:08] LABS: EBV Nuclear Antigen Ab, IgG 184.0 U/mL (0.0-17.9)
[2025-06-09 14:08] LABS: ACE 48 U/L (14-82)
[2025-06-09 18:08] LABS: Deamidated Gliadin Abs, IgA 6 units (0-19); Deamidated Gliadin Abs, IgG 2 units (0-19); Immunoglobulin A, Qn 139 mg/dL (87-352)
== END 2025-06-07 07:48 | disposition home or self-care (01) ==
LOC: ANHBWCLAB 07:49
PROVIDERS: PCP Nurse Practitioner Adult Health; Visit Provider Internal Medicine
DX: M06.9 Rheumatoid arthritis, unspecified (principal)
CPT/HCPCS: 36415; 82164; 82784; 84439; 84443; 84481; 84550; 86037; 86060; 86200; 86231; 86258; 86664; 86665; 86747

== ENCOUNTER 2025-07-02 16:59 | Emergency (ER) | payer BC, SELFPAY ==
--- OUTSIDE RECORDS SUMMARY | 2025-07-02 17:02 | XMS_ITS | Referral Summary ---
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
--- OUTSIDE RECORDS SUMMARY | 2025-07-02 17:02 | XMS_ITS | Clinical Summary ---
Author Organization [facility] Address [address] [facility] [place] [address] Care Team Providers Care B And B Gang Worker Name Role Phone Unavailable Primary Care Provider Unavailabl e Source Comments [facility],non-owned Affiliates and Associated Physician Practices is amultiple site organization consisting of ambulatory clinics and hospital sitesin [place], [place], [place] and [place]. This disclosure is being madepursuant to the Care Everywhere program and may not contain all information available regarding this patient. Last updated 18.[facility] [employer] Social History Tobacco Use Types Packs/Day Years [...] 19+ 3-dose series) 2006 PAP SMEAR 2008 HPV VACCINE (1 - 3-dose SCDM series) 2014 COVID-19 VACCINE ( - 2023-2 5 season) [...] RUSHING Subscriber ID:Not on file (Home) Address: [address] [place] [id number] Payer ID:Not on file Group ID:Not on file Type:Self Pay Address: [facility]
--- OUTSIDE RECORDS SUMMARY | 2025-07-02 17:02 | XMS_ITS | Encounter Summary ---
Author Organization [facility] Address [address] [place] [address] Care Team Providers Care Patient Coordinator Name Role Phone Unavailable Primary Care Provider Unavailabl e Encounter Details Date Type Department Care Team (Late st Contact Info) Description 06/23/2020 Lab Requisition [facility] DermPath Lab [address] [facility] [place] [address] Chelita Mantilla DO [address] [facility] 3 [place] [address] Social History Tobacco Use Types Packs/Day Years [...] AM CDT) Case Report Dermatopathology Report Case: [id number] Authorizing Provider: Chelita Mantilla DO Collected: 06/22/2020 12:00 AM Ordering Location: [facility] DermPath Lab Received: 06/23/2020 [...] The specimen consists of a shave measuring [id number], bisected. Jar 0. Specimen B: Received is one formalin filled container labeled with the patient's name and designated left inner thigh. The specimen consists of a shave measuring [id number]. Jar 0. 0 1:52 PM CDT DERMATOPATHOLOGY [...] characteristic determined by the Dermatopathology Laboratory at [facility], directed by Dr. Leander Lema. These tests need not be, and therefore are not, approved by the [place] Food and Drug Administration. The tests are used for clinical purposes. Billing Codes Specimen Charges Stain Charges 62322 00888 1 1 0 1:52 PM CDT DERMATOPATHOLOGY LABORATORY Embedded Images 0 1:52 PM CDT DERMATOPATHOLOGY LABORATORY Pathology/Cytology TISSUE SPECIMEN FROM SKIN / Unknown 06/22/2020 06/23/2020 7:23 AM CDT Miscellaneous samples (specimen) TISSUE SPECIMEN FROM SKIN / Unknown 06/22/2020 06/23/2020 7:23 AM CDT Chelita Mantilla DO LAB - PATHOLOGY/CYTOLOGY ORDERABLES Final Result DERMATOPATHOLOGY LABORATORY [facility] - Department of Dermatology [facility]/[address] [phone] documented in this encounter Visit Diagnoses Not on filedocumented in this encounter
--- OUTSIDE RECORDS SUMMARY | 2025-07-02 17:02 | XMS_ITS | Clinical Summary ---
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 Gender Identity Not on file Sexual [...] Screening 2005 Regular Well Visit/Exam 18-64 2005 HPV Vaccines (1 - 3-dose SCD M series) 2014 DTaP/Tdap/Td Vaccine (2 - Td or Tdap) 12/01/2021 12/01/2011 Influenza Vaccine (#1) 2025 08/31/2016 Pneumococcal vaccine <65 Aged Out No longer eligible based on patient's age to complete this topic Insurance [facility] OOS Advance Directives For more information, please contact: [phone] * Full Code (Latest Code Status on File) Date Activated Date Inactivated Comments 06/08/2022 11:46 PM 06/10/2022 9:22 PM Care Teams Landfill Grader Relationship Specialty Start Date End Date Miscellaneous, Not In File PCP - General 06/08/22 Hira Chamorro MD Consulting Physician General Surgery 06/10/22
[2025-07-02 17:06] VITALS: BP 138/99; PULSE 106; RESP 20; TEMP 36.9; O2SAT 100
--- NOTE | 2025-07-02 17:23 | ED_ITS ---
HPI - General Adult General Chief complaint: Allergic Reaction Stated complaint: Rash Source: patient Mode of arrival: ambulatory Limitations: no limitations History of Present Illness HPI narrative: Patient presents for evaluation of a pruritic rash to her torso extremities x4. Symptom onset 4 days ago. No new lotions, soaps, detergents, topical products. She was started on hydroxychloroquine 2 weeks ago. She has an autoimmune disease but states the rheumatology still working her up for this. She states she spoke with her body mechanic apprentice and they recommended she stop hydroxychloroquine. She was hesitant to do so as it was helping with her other symptoms. She did stop taking the medication. She denies any difficulty breathing or swelling. She has been applying Benadryl cream without much improvement. Related Data Home Medications ?Medication ?Instructions ?Recorded ?Confirmed ?Last Taken ?Type hydroxychloroquine 200 mg tablet mg PO 07/02/25 07/01/25 History norethindrone 1 mg-ethinyl tablet 07/02/25 07/02/25 History estradiol 20 mcg (24)-iron 75 mg (4) tablet (Aurovela 24 Fe) Allergies Allergy/AdvReac Type Severity Reaction Status Date / Time codeine Allergy Unknown Verified 05/18/25 11:22 latex Allergy Unknown Verified 05/18/25 11:22 tramadol Allergy Nausea and Verified 05/18/25 11:22 Vomiting Review of Systems Review of Systems: CONSTITUTIONAL: Denies fever, chills, or sweats. EYES: Denies visual changes, redness, or discharge. ENT: Denies rhinorrhea, congestion, sore throat, or otalgia. CARDIOVASCULAR: Denies chest pain, palpitations, or edema. RESPIRATORY: Denies cough or dyspnea. GASTROINTESTINAL: Denies abdominal pain, nausea, vomiting, or diarrhea. GENITOURINARY: Denies dysuria or hematuria. SKIN: Reports pruritic rash to the torso and extremities x4 MUSCULOSKELETAL: Denies back pain, joint pain, or myalgia. NEUROLOGIC: Denies headache, numbness, dizziness, or weakness. PSYCHIATRIC: Denies anxiety or depression. [facility] Past Medical History Medical History Autoimmune disease ADD (attention deficit disorder) Body aches after vaccination Hx of migraine headaches Depression Surgical History Surgical History H/O tubal ligation H/O section Family History Family History (Reviewed 07/02/25 @ 17:26 by Hira Deleon, [facility], ) Grandparent Cervical cancer Skin cancer Grandparent Cerebrovascular accident Diabetes mellitus Social History Social History (Reviewed 07/02/25 @ 17:26 by Hira Deleon, [facility], ) Smoking status: Never smoker Alcohol intake: current Drinks per week: 1 Substance use: never Lack of Transportation: No Lack of Food: Never True Current Housing: I Have Housing Concerned About Future Housing: No Difficulty Paying Gas/Electric Bills: No Difficulty Paying for Meds: No Currently Unemployed: No Education: High School Diploma/GED Difficulty w/ Childcare or Family Care: No Exam Narrative: GENERAL: Well-appearing, well-nourished, and in no acute distress. HEAD: Normocephalic, atraumatic. EYES: PERRLA and EOMI. ENT: Nares clear, no rhinorrhea or epistaxis. Mucous membranes moist. Oropharynx without tonsillar hypertrophy exudate or other lesions. Bilateral TMs pearly farias nonbulging NECK: Supple. No adenopathy or masses. No carotid bruits or JVD CHEST: Clear to auscultation. No respiratory distress. No wheezes rales or rhonchi HEART: Regular rate and rhythm. No murmur heard. Normal peripheral pulses. ABDOMEN: Soft, nontender, nondistended, normal active bowel sounds. EXTREMITIES: Normal range of motion. No edema. SKIN: There is a slightly raised erythematous rash to torso and extremities x 4 NEURO: No focal deficits. Alert and oriented x3. PSYCH: Normal mood and affect. Course Course Emergency Course: This is a 39-year-old female who presented for evaluation of a rash. This seems to be an allergic reaction. He has stopped hydroxychloroquine and has an appointment with her body mechanic apprentice next . Will start her on prednisone. She has taken it in the past. Will also dc with hydroxyzine as she states prednisone causes sleep disturbances. Despite that, she would like to proceed with treatment as she knows it will help her symptoms. She was advised to keep her appointment with rheumatology go to the emergency department for worsening symptoms. Patient in agreement with plan of care. Level of Care: Express Care Visit Vital Signs Vital signs: Vital Signs Temperature 36.9 C 07/02/25 17:06 Pulse Rate 106 H 07/02/25 17:06 Respiratory Rate 20 07/02/25 17:06 Blood Pressure 138/99 H 07/02/25 17:06 Pulse Oximetry 100 07/02/25 17:06 Oxygen Delivery Room Air 07/02/25 17:06 Temperature 36.9 C 07/02/25 17:06 Pulse Rate 106 H 07/02/25 17:06 Respiratory Rate 20 07/02/25 17:06 Blood Pressure 138/99 H 07/02/25 17:06 Pulse Oximetry 100 07/02/25 17:06 Oxygen Delivery Room Air 07/02/25 17:06 Medical Decision Making Vital Signs Vital Signs: Vital Signs Temperature 36.9 C 07/02/25 17:06 Pulse Rate 106 H 07/02/25 17:06 Respiratory Rate 20 07/02/25 17:06 Blood Pressure 138/99 H 07/02/25 17:06 Pulse Oximetry 100 07/02/25 17:06 Oxygen Delivery Room Air 07/02/25 17:06 Temperature 36.9 C 07/02/25 17:06 Pulse Rate 106 H 07/02/25 17:06 Respiratory Rate 20 07/02/25 17:06 Blood Pressure 138/99 H 07/02/25 17:06 Pulse Oximetry 100 07/02/25 17:06 Oxygen Delivery Room Air 07/02/25 17:06 Discharge Plan Discharge Clinical Impression: Allergic reaction Patient Disposition: Home Condition: Stable Instructions: Antibiotic Form, Acute Rash (ED), General Allergic Reaction (ED) Patient Language: Urdu Prescriptions: New prednisone 50 mg tablet 50 mg PO DAILY Qty: 5 0RF hydroxyzine pamoate 25 mg capsule 25 - 50 mg PO Q6H PRN (Reason: itching) Qty: 30 0RF No Action hydroxychloroquine 200 mg tablet PO Aurovela 24 Fe 1 mg-20 mcg (24)/75 mg (4) tablet valacyclovir [Valtrex] 1 gram tablet 2,000 mg PO Q12H 1 Days Qty: 4 2RF Rx Instructions: Take without delay at 1st sign of symptoms fluoxetine 20 mg capsule See Rx Instructions .ROUTE .COMPLEX Qty: 90 3RF Dose Instruction: TAKE 1 CAPSULE BY MOUTH DAILY Rx Instructions: TAKE 1 CAPSULE BY MOUTH DAILY levothyroxine 75 mcg tablet See Rx Instructions .ROUTE .COMPLEX Qty: 90 0RF Dose Instruction: TAKE 1 TABLET BY MOUTH DAILY Rx Instructions: TAKE 1 TABLET BY MOUTH DAILY cyanocobalamin (vitamin B-12) 1,000 mcg tablet, sublingual 1,000 mcg sublingual DAILY Qty: 90 0RF meloxicam 15 mg tablet 15 mg PO DAILY Qty: 90 0RF dextroamphetamine-amphetamine [Adderall XR] 30 mg capsule,extended release 24hr 30 mg PO DAILY Qty: 30 0RF Follow-up/Referrals: Gilma Kelley APRN [Primary Care Provider] - Time of Disposition: 17:20
== END 2025-07-02 17:24 | disposition home or self-care (01) ==
PROVIDERS: Emergency Provider Nurse Practitioner; PCP Nurse Practitioner Adult Health
DX: T78.40XA Allergy, unspecified, initial encounter (principal); M35.9 Systemic involvement of connective tissue, unspecified; F32.A Depression, unspecified; F98.8 Other specified behavioral and emotional disorders with onset usually occurring in childhood and adolescence
CPT/HCPCS: 99213; G0463

== ENCOUNTER 2025-08-22 08:24 | Outpatient (CLI) | payer BC, SELFPAY ==
--- OUTSIDE RECORDS SUMMARY | 2025-08-22 09:00 | XMS_ITS | Clinical Summary ---
Author Organization [facility] Address [address] [facility] [place] [address] Care Team Providers Care Medical Records Analyst Name Role Phone Unavailable Primary Care Provider Unavailabl e Source Comments [facility],non-owned Affiliates and Associated Physician Practices is amultiple site organization consisting of ambulatory clinics and hospital sitesin [place], [place], [place] and [place]. This disclosure is being madepursuant to the Care Everywhere program and may not contain all information available regarding this patient. Last updated 18.[facility] [employer] Social History Tobacco Use Types Packs/Day Years [...] VACCINE (1 - 3-dose SCDM series) 2014 DEPRESSION SCREENING 12/01/2024 COVID-19 VACCINE (1 - 2023-2 5 season) 2025 INFLUENZA VACCINE (#1) 2025 ZOSTER VACCINE (1 [...] RUSHING Subscriber ID:Not on file (Home) Address: [address] [place] [id number] Payer ID:Not on file Group ID:Not on file Type:Self Pay Address: [facility]
--- OUTSIDE RECORDS SUMMARY | 2025-08-22 09:00 | XMS_ITS | Clinical Summary ---
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
--- OUTSIDE RECORDS SUMMARY | 2025-08-22 09:00 | XMS_ITS | Clinical Summary ---
Author Organization [facility] Care Team Providers Care Civil Attorney Name Role Phone Gilma Kelley APRN Primary Care Provider [phone] Allergies Active Allergy Reactions Criticality Noted Date Comments Codeine Unknown 07/22/2025 Latex Unknown 07/22/2025 Medications FLUoxetine (PROzac) 20 MG Capsule Take 20 mg by mouth daily. Active cholecalciferol (VITAMIN D) 64800 UNIT Capsule Take by mouth once a week. Active amphetamine-dext roamphetamine (Adderall XR) 30 MG CAPSULE SR 24 HR Take 30 mg by mouth every morning. Active levothyroxine (SYNTHROID) 75 MCG Tablet Take 75 mcg by mouth daily. Active Social History Tobacco Use Types Packs/Day Years Used Date Smoking Tobacco: Never Smokeless Tobacco: Never Tobacco Cessation:Counseling Given: Not Answered Alcohol Use Standard Drinks/Week Comments Yes 0 (1 standard drink = 0.6 oz pur e alcohol) 1 WEEKLY Comments Unknown Sex and Gender Information Value Date Recorded Sex Assigned at Not on file Legal Sex Female 9:31 AM CDT Gender Identity Not on file Sexual Orientation Not on file Last Filed Vital Signs Vital Sign Reading Time Taken Comments Blood Pressure - - Pulse - - Temperature - - Respiratory Rate - - Oxygen Saturation - - Inhaled Oxygen Concentration - - Weight - - Height 167.6 cm (5' 6) 07/22/2025 7:24 AM CDT Body Mass Index - - Plan of Treatment Upcoming Encounters Date Type Department Care Team (Late st Contact Info) Description 01/24/2026 1:30 PM DENTURE LABORATORY TECHNICIAN Office Visit [facility] - Neurology [facility]3] [address] [place] [id number] Kirit Tony MD [address] [place] [address] Health Maintenance Due Date Last Done Comments Hepatitis C Virus (HCV) Screening 1987 TdaP Immunization 1987 Hepatitis B Immunization (1 of 3 - 19+ 3-dose series) 2006 Pap Smear 2008 Human Papillomavirus (HPV) Immunization (1 - 3-dose SCDM series) 2014 Cervical Cancer Screening (CCS) 2017 HPV/Cotest 2017 Influenza Immunization (#1) 2025 SARS-COV-2 Immunization ( season) 2025 Respiratory Syncytial Virus (RSV) Immunization (Adult) (1 - 1-dose 75+ series) 2062 Meningococcal Immunization (ACWY) Aged Out No longer eligible based on patient's age to complete this topic Pneumococcal Immunization Combined Aged Out No longer eligible based on patient's age to complete this topic Rotavirus Immunization Aged Out No lo nger eligible based on patient's age to complete this topic Care Teams Civil Attorney Relationship Specialty Start Date End Date Gilma Kelley APRN [address] [place] [address] PCP - General Advanced Practice Nurse 07/20/25
--- OUTSIDE RECORDS SUMMARY | 2025-08-22 09:00 | XMS_ITS | Encounter Summary ---
Author Organization [facility] Address [address] [place] [address] Care Team Providers Care Sales Floor Associate Name Role Phone Unavailable Primary Care Provider Unavailabl e Encounter Details Date Type Department Care Team (Late st Contact Info) Description 06/23/2020 Lab Requisition [facility] DermPath Lab [address] [facility] [place] [address] Chelita Mantilla DO [address] [facility] [address] [place] [address] Social History Tobacco Use Types Packs/Day Years [...] AM CDT) Case Report Dermatopathology Report Case: [id number] Authorizing Provider: Chelita Mantilla DO Collected: 06/22/2020 12:00 AM Ordering Location: [facility] DermPath Lab Received: 06/23/2020 07:23 [...] The specimen consists of a shave measuring [id number], bisected. Jar 0. Specimen B: Received is one formalin filled container labeled with the patient's name and designated left inner thigh. The specimen consists of a shave measuring [id number]. Jar 0. 0 1:52 PM CDT DERMATOPATHOLOGY [...] characteristic determined by the Dermatopathology Laboratory at [facility], directed by Dr. Leander Lema. These tests need not be, and therefore are not, approved by the [place] Food and Drug Administration. The tests are used for clinical purposes. Billing Codes Specimen Charges Stain Charges [id number] 1 1 0 1:52 PM CDT DERMATOPATHOLOGY LABORATORY Embedded Images 0 1:52 PM CDT DERMATOPATHOLOGY LABORATORY Pathology/Cytology TISSUE SPECIMEN FROM SKIN / Unknown 06/22/2020 06/23/2020 7:23 AM CDT Miscellaneous samples (specimen) TISSUE SPECIMEN FROM SKIN / Unknown 06/22/2020 06/23/2020 7:23 AM CDT Chelita Mantilla DO LAB - PATHOLOGY/CYTOLOGY ORDERABLES Final Result DERMATOPATHOLOGY LABORATORY [facility] - Department of Dermatology [facility]/[address] [phone] documented in this encounter Visit Diagnoses Not on filedocumented in this encounter
[2025-08-22 19:10] LABS: Alanine Aminotransferase 19 U/L (6-35); Albumin Level 3.7 g/dL (3.5-5.1); Alkaline Phosphatase 66 U/L (38-126); Anion Gap 6 mmol/L (4-12); Aspartate Amino Transferase 43 U/L (14-36); Bilirubin,Total 0.4 mg/dL (0.2-1.3); Blood Urea Nitrogen 11 mg/dL (7-17); CRP 1.3 mg/dL (<1.0); Calcium 8.4 mg/dL (8.4-10.2); Carbon Dioxide 24 mmol/L (22-30); Chloride 105 mmol/L (98-107); Estimated Glomerular Filt Rate > 60; Glucose 82 mg/dL (65-110); Potassium 3.9 mmol/L (3.4-5.0); Sodium 135 mmol/L (137-145); Total Protein 6.9 g/dL (6.3-8.2)
[2025-08-22 19:31] LABS: Add Urine Microscopic? YES; Appearance Urine Turbid (Clear); Glucose Urine UA Negative (Negative); Leukocyte Esterase Ur Negative LEU/UL (Negative); Need Manual Microscopic Reviewed; Nitrate Urine Negative (Negative); Non Pathogenic Casts 0-2; Specific Grav Ur 1.026 (1.001-1.035)
[2025-08-22 19:32] LABS: Hematocrit 41.4 % (37.0-47.0); Hemoglobin 12.8 g/dL (12.0-15.0); Immature Granulocyte Percent A 0.1 % (0-0.5); Lymphocytes Absolute Auto 2.68 K/mm3 (0.9-3.2); Mean Corpuscular HGB Conc 30.9 g/dl (32-36); Mean Corpuscular Hemoglobin 28.1 pg (26-34); Mean Corpuscular Volume 91.0 fl (80-100); Nucleated Red Blood Cells Absolute Auto 0.000 K/mm3 (0.0-0.012); Nucleated Red Blood Cells Perc 0.0 % (0.0-0.2); Platelet Count Result 403 k/mm3 (150-375); Red Blood Count 4.55 M/mm3 (4.2-5.4); White Blood Count 6.8 K/mm3 (4.5-10.0)
== END 2025-08-22 08:25 | disposition home or self-care (01) ==
PROVIDERS: PCP Nurse Practitioner Adult Health; Visit Provider Internal Medicine
DX: M06.042 Rheumatoid arthritis without rheumatoid factor, left hand (principal)
CPT/HCPCS: 36415; 80053; 80069; 81001; 85025; 85652; 86140